=== PATIENT | female | born 1965 | race Caucasian/White ===

== ENCOUNTER 2016-06-26 09:04 | Emergency (ER) | payer SELFPAY ==
[~2016-06-26] VITALS: Ht 167.6 cm; Wt 81.8 kg
[~2016-06-26 09:04] MED LIST: AMOXICILLIN500 MG PO; AMPICILLIN500 MG PO; CLARITHROMYC500 M2 PO; EQ OMEPRAZOLE20 MG PO; MEDDOSEPAK PO; NAPROSYN500 MG PO; ULTRAM50 M1 PO; VENTOLIN HF1 IN
[2016-06-26 11:03] LABS: INFLUENZA A NONE DETECTED (NONE DETECT); INFLUENZA B NONE DETECTED (NONE DETECT)
[2016-06-26 13:31] LABS: HEMATOCRIT 38.1 % (37.0-47.0); HEMOGLOBIN 12.6 g/dl (12.0-16.0); IMMATURE GRANULOCYTES 0.4 % (0.0-1.0); MEAN CELL VOLUME 85.6 fL CALC (80.0-100.0); MEAN CORPUSCULAR HGB 28.3 pG CALC (26.0-32.0); MEAN CORPUSCULAR HGB CONC 33.1 g/L CALC (32.0-36.0); NEUT# 6.79 thou/uL (2.00-7.15); RED BLOOD COUNT 4.45 mill/uL (4.20-5.60); RED CELL DISTRI WIDTH 13.4 % (11.5-15.5)
[2016-06-26 13:41] LABS: ALBUMIN 3.9 g/dL (3.2-5.0); ALKALINE PHOSPHATASE 94 u/l (38-126); ANION GAP 14 (6-22 (CALC)); BILIRUBIN, TOTAL 0.6 mg/dL (0.0-1.4); BUN 17 mg/dL (7-17); BUN/CREATININE RATIO 31 (12-20 (CALC)); CARBON DIOXIDE 26 mmol/l (22-30); CHLORIDE 105 mmol/l (95-108); CREATININE 0.6 mg/dL (0.5-1.0); GFR > 60 ML/MIN (>=60 (CALC)); GFR FOR AFR.AMER. > 60 ML/MIN (>=60 (CALC)); GLUCOSE 97 mg/dL (65-105); LIPASE 41 u/l (23-300); POTASSIUM 3.8 mmol/l (3.5-5.1); SGOT/AST 35 u/l (14-36); SGPT/ALT 47 u/l (9-52); SODIUM 142 mmol/l (137-146); TOTAL PROTEIN 7.9 g/dL (6.3-8.2)
[2016-06-26 13:54] LABS: MYOGLOBIN 28 ng/mL (0 - 62)
[2016-06-26 15:09] LABS: URINE BILIRUBIN - DIPSTICK NEGATIVE (NEGATIVE); URINE BLOOD DIPSTICK LARGE (NEGATIVE); URINE COLOR YELLOW; URINE GLUCOSE - DIPSTICK NEGATIVE (NEGATIVE); URINE KETONE NEGATIVE (NEGATIVE); URINE LEUK ESTERASE TRACE (Negative); URINE NITRITE - DIPSTICK POSITIVE (Negative); URINE PROTEIN - DIPSTICK NEGATIVE (NEG-TRACE); URINE SPECIFIC GRAVITY 1.015; URINE UROBILINOGEN - DIPSTICK 0.2 E.U./dL (0.2)
[2016-06-26 15:11] LABS: URINE CLARITY CLOUDY
[2016-06-26 15:12] LABS: URINE BACTERIA MODERATE hpf; URINE EPITHELIAL CELLS FEW EPI/hpf (0-FEW); URINE RBC 25-50 RBC/hpf (0-5)
[2016-06-27] MEDS ORDERED: ZOFRAN4 MG/TAB PO (04:17)
[2016-06-27] MEDS ORDERED: CIPROFLOXACN500 MG PO (04:17)
[2016-06-27] MEDS ORDERED: IMODIUM2 MG PO (04:17)
[2016-06-27 04:30] VITALS: BP 119/82
== END 2016-06-27 04:30 | disposition home or self-care (01) | DRG 392 ==
LOC: ED 09:04
PROVIDERS: Emergency Medicine
DX: R11.10 Vomiting, unspecified (principal); R00.1 Bradycardia, unspecified; R19.7 Diarrhea, unspecified; R10.9 Unspecified abdominal pain
CPT/HCPCS: S0164

== ENCOUNTER 2016-08-20 19:35 | Inpatient (IN) | payer SELFPAY ==
[~2016-08-20] VITALS: Ht 167.6 cm; Wt 87.7 kg
[~2016-08-20 19:35] MED LIST changes: +CIPROFLOXACN500 MG PO; +IMODIUM2 MG PO; +ZOFRAN4 MG/TAB PO
[2016-08-20 20:57] LABS: HEMATOCRIT 40.1 % (37.0-47.0); HEMOGLOBIN 13.3 g/dl (12.0-16.0); IMMATURE GRANULOCYTES 0.5 % (0.0-1.0); MEAN CELL VOLUME 86.1 fL CALC (80.0-100.0); MEAN CORPUSCULAR HGB 28.5 pG CALC (26.0-32.0); MEAN CORPUSCULAR HGB CONC 33.2 g/L CALC (32.0-36.0); NEUT# 6.92 thou/uL (2.00-7.15); RED BLOOD COUNT 4.66 mill/uL (4.20-5.60); RED CELL DISTRI WIDTH 13.6 % (11.5-15.5)
[2016-08-20 21:15] LABS: ALBUMIN 3.9 g/dL (3.2-5.0); ALKALINE PHOSPHATASE 103 u/l (38-126); AMYLASE 122 u/l (30-110); ANION GAP 17 (6-22 (CALC)); BILIRUBIN, TOTAL 0.5 mg/dL (0.0-1.4); BUN 9 mg/dL (7-17); BUN/CREATININE RATIO 16 (12-20 (CALC)); CALCIUM 9.4 mg/dL (8.4-10.2); CARBON DIOXIDE 23 mmol/l (22-30); CHLORIDE 106 mmol/l (95-108); CREATININE 0.6 mg/dL (0.5-1.0); GFR > 60 ML/MIN (>=60 (CALC)); GFR FOR AFR.AMER. > 60 ML/MIN (>=60 (CALC)); GLUCOSE 92 mg/dL (65-105); LIPASE 1055 u/l (23-300); POTASSIUM 3.9 mmol/l (3.5-5.1); SGOT/AST 67 u/l (14-36); SGPT/ALT 43 u/l (9-52); SODIUM 142 mmol/l (137-146); TOTAL PROTEIN 7.5 g/dL (6.3-8.2)
[2016-08-20 21:29] LABS: URINE BILIRUBIN - DIPSTICK NEGATIVE (NEGATIVE); URINE BLOOD DIPSTICK MODERATE (NEGATIVE); URINE COLOR YELLOW; URINE GLUCOSE - DIPSTICK NEGATIVE (NEGATIVE); URINE KETONE NEGATIVE (NEGATIVE); URINE PROTEIN - DIPSTICK NEGATIVE (NEG-TRACE); URINE SPECIFIC GRAVITY 1.015; URINE UROBILINOGEN - DIPSTICK 0.2 E.U./dL (0.2)
[2016-08-20] MEDS ORDERED: NEURONTIN300 MG PO (21:31)
[2016-08-20 21:33] LABS: URINE CLARITY SLIGHT CLOUDY; URINE LEUK ESTERASE SMALL (NEGATIVE); URINE NITRITE - DIPSTICK POSITIVE (Negative)
[2016-08-20 21:39] LABS: URINE SQUAMOUS EPITHELIAL CELL FEW EPI/hpf (0-FEW)
[2016-08-20 21:40] LABS: URINE BACTERIA MANY hpf
[2016-08-21 00:05] VITALS: BP 124/87
[2016-08-21 04:30] VITALS: BP 114/65
[2016-08-21 08:16] VITALS: BP 107/75
[2016-08-21 15:43] VITALS: BP 122/79
[2016-08-21 19:15] VITALS: BP 115/76
[2016-08-22 03:35] VITALS: BP 108/77
[2016-08-22 06:09] LABS: ANION GAP 10 (6-22 (CALC)); BUN 5 mg/dL (7-17); BUN/CREATININE RATIO 11 (12-20 (CALC)); CALCIUM 8.8 mg/dL (8.4-10.2); CARBON DIOXIDE 25 mmol/l (22-30); CHLORIDE 107 mmol/l (95-108); CREATININE 0.5 mg/dL (0.5-1.0); GFR > 60 ML/MIN (>=60 (CALC)); GFR FOR AFR.AMER. > 60 ML/MIN (>=60 (CALC)); GLUCOSE 87 mg/dL (65-105); LIPASE 25 u/l (23-300); POTASSIUM 4.1 mmol/l (3.5-5.1); SODIUM 138 mmol/l (137-146)
[2016-08-22 06:11] LABS: HEMATOCRIT 34.8 % (37.0-47.0); HEMOGLOBIN 11.1 g/dl (12.0-16.0); IMMATURE GRANULOCYTES 0.3 % (0.0-1.0); MEAN CELL VOLUME 87.9 fL CALC (80.0-100.0); MEAN CORPUSCULAR HGB CONC 31.9 g/L CALC (32.0-36.0); NEUT# 4.02 thou/uL (2.00-7.15); RED BLOOD COUNT 3.96 mill/uL (4.20-5.60); RED CELL DISTRI WIDTH 13.6 % (11.5-15.5)
[2016-08-22 09:14] VITALS: BP 149/86
[2016-08-22] MEDS ORDERED: BACLOFEN10 MG PO (13:03)
[2016-08-22] MEDS ORDERED: KEFLEX500 MG PO (13:03)
[2016-08-22] MEDS ORDERED: CREON12000 UNT PO (13:03)
[2016-08-22] MEDS ORDERED: PROTONIX40 M2 PO (13:03)
[2016-08-22] MEDS ORDERED: SUCRALFATE1 GM/10 ML PO (13:03)
[2016-08-22] MEDS ORDERED: TRAMADOL HCL50 MG PO (13:03)
== END 2016-08-22 14:30 | disposition home or self-care (01) | DRG 439 ==
LOC: ENPENDDIS → ED 19:35 → ED-I 22:13 → ED 23:36 → MS2 23:37
PROVIDERS: Emergency Medicine; Internal Medicine; ADMIT Internal Medicine; ATTEND Internal Medicine
DX: K85.90 Acute pancreatitis without necrosis or infection, unspecified (principal); N39.0 Urinary tract infection, site not specified; G62.9 Polyneuropathy, unspecified; K27.9 Peptic ulcer, site unspecified, unspecified as acute or chronic, without hemorrhage or perforation; K86.1 Other chronic pancreatitis; K44.9 Diaphragmatic hernia without obstruction or gangrene; B96.1 Klebsiella pneumoniae [K. pneumoniae] as the cause of diseases classified elsewhere; K29.70 Gastritis, unspecified, without bleeding; R51 Headache; M19.90 Unspecified osteoarthritis, unspecified site; J45.909 Unspecified asthma, uncomplicated; F17.210 Nicotine dependence, cigarettes, uncomplicated; F12.90 Cannabis use, unspecified, uncomplicated
CPT/HCPCS: J1956; S0164

== ENCOUNTER 2016-12-13 09:12 | Emergency (ER) | payer SELFPAY ==
[~2016-12-13] VITALS: Ht 167.6 cm; Wt 79.5 kg
[~2016-12-13 09:12] MED LIST changes: +BACLOFEN10 MG PO; +CREON12000 UNT PO; +KEFLEX500 MG PO; +NEURONTIN300 MG PO; +PROTONIX40 M2 PO; +SUCRALFATE1 GM/10 ML PO; +TRAMADOL HCL50 MG PO
[2016-12-13] MEDS ORDERED: FLEXERIL PO (10:07)
[2016-12-13] MEDS ORDERED: EC-NAPROSYN500 MG PO ×2 (10:07→11:11)
[2016-12-13] MEDS ORDERED: TRAMADOL HYDROC50 MG PO (10:07)
[2016-12-13] MEDS ORDERED: LORTAB 5-325 MG1 TAB PO (11:11)
[2016-12-13 11:22] VITALS: BP 129/90
== END 2016-12-13 11:31 | disposition home or self-care (01) | DRG 313 ==
LOC: ED 09:12
DX: R07.89 Other chest pain (principal); S29.011A Strain of muscle and tendon of front wall of thorax, initial encounter; X50.1XXA Overexertion from prolonged static or awkward postures, initial encounter; Y92.009 Unspecified place in unspecified non-institutional (private) residence as the place of occurrence of the external cause

== ENCOUNTER 2017-02-23 12:07 | Inpatient (IN) | payer SELFPAY ==
[~2017-02-23] VITALS: Ht 165.1 cm; Wt 84.1 kg
[~2017-02-23 12:07] MED LIST changes: +EC-NAPROSYN500 MG PO; +FLEXERIL PO; +LORTAB 5-325 MG1 TAB PO; +TRAMADOL HYDROC50 MG PO
--- NOTE | 2017-02-23 12:19 | NUR ---
PT TO ROOM FOR EXAM
--- NOTE | 2017-02-23 12:30 | NUR ---
PATIENT TO ROOM VIA WHEELCHAIR, PATIENT VAGUE HISTORIAN. DAUGHTER REPORTS COUGH/COLD SYMPOTMS X 2 WEEKS WITH FEVER. PATIENT SAO2 92% ON ROOM AIR. AUDIBLE WHEEZES NOTED. LS DIMISINSHED BILATERALLY, RHONCI NOTED BILATERALLY UPON AUSCULTATION. PATIENT HAS PRODUCTIVE COUGH WITHNOTED GREEN SPUTUM. PATIENT AFEBRILE AT THIS TIME. HOB PLACED IN HIGH FOWLERS POSITION. MD AT BEDSIDE, RT AT BEDSIDE TO GIVE JOSE TX.
--- NOTE | 2017-02-23 13:00 | NUR ---
MONITORED PATIENT REPORTS 8/10 LEFT SIDED RIB PAIN. PATIENT PLACED ON 4 L OF O2 NC BY RT. HERNANDEZ AT BEDSIDE. SAO2 93% ON O2.
[2017-02-23 13:13] LABS: HEMATOCRIT 38.4 % (37.0-47.0); HEMOGLOBIN 12.3 g/dl (12.0-16.0); IMMATURE GRANULOCYTES 0.6 % (0.0-1.0); MEAN CELL VOLUME 88.3 fL CALC (80.0-100.0); MEAN CORPUSCULAR HGB 28.3 pG CALC (26.0-32.0); NEUT# 12.99 thou/uL (2.00-7.15); RED BLOOD COUNT 4.35 mill/uL (4.20-5.60); RED CELL DISTRI WIDTH 13.7 % (11.5-15.5)
[2017-02-23 13:21] LABS: ALKALINE PHOSPHATASE 78 u/l (38-126); ANION GAP 14 (6-22 (CALC)); BILIRUBIN, TOTAL 0.6 mg/dL (0.0-1.4); BUN 10 mg/dL (7-17); BUN/CREATININE RATIO 17 (12-20 (CALC)); CALCIUM 9.3 mg/dL (8.4-10.2); CARBON DIOXIDE 23 mmol/l (22-30); CHLORIDE 107 mmol/l (95-108); CREATININE 0.6 mg/dL (0.5-1.0); GFR > 60 ML/MIN (>=60 (CALC)); GFR FOR AFR.AMER. > 60 ML/MIN (>=60 (CALC)); GLUCOSE 94 mg/dL (65-105); SGOT/AST 34 u/l (14-36); SGPT/ALT 26 u/l (9-52); SODIUM 141 mmol/l (137-146); TOTAL PROTEIN 7.8 g/dL (6.3-8.2)
--- NOTE | 2017-02-23 13:25 | NUR ---
Admission Note Report Given to: MIRIAM Transported by: Wheelchair X Stretcher Transported with: X Nurse Transporter X Patent IV X O2 X Professional Poker Player MIRIAM TRANSPORTING PATIENT TO ICU, VERBAL REPORT GIVEN TO LPN. EMANUEL JIMENEZ AT BEDSIDE.
[2017-02-23 13:27] LABS: INFLUENZA A NONE DETECTED (NONE DETECT); INFLUENZA B NONE DETECTED (NONE DETECT)
--- NOTE | 2017-02-23 13:28 | NUR ---
PATIENT SAO2 96% ON ROOM AIR PATIENT REPORTS CONTINUED 8/10 LEFT SIDED RIB/BACK PAIN WORSENING UPON INSPIRATION. MD AWARE, AWAITING ORDERS.
[2017-02-23 13:33] LABS: MYOGLOBIN 37 ng/mL (0 - 62)
--- NOTE | 2017-02-23 14:00 | NUR ---
PATIENT REPORTS PAIN IS NOW 6/10. PATIENT RESTING COMFORTABLY IN STRETCHER WITH HOB ELEVATED. WILL CONTINUE TO MONITOR.
--- NOTE | 2017-02-23 14:13 | NUR ---
SBAR PRINTED TO FLOOR
--- NOTE | 2017-02-23 14:45 | NUR ---
PATIENT AWARE OF PENDING ADMISSION. PATIENT RESTING COMFORTABLY IN STRETCHER WITH HOB ELEVATED SAO2 100% ON 4 L NC AT THIS TIME. DRINK PROVIDED. WILL CONTINUE TO MONITOR.
--- NOTE | 2017-02-23 15:02 | NUR ---
PATIENT RESTING CMFORTABLY IN STRETCHER WITH HOB ELEVATED. PATIENT SAO2 100% ON 4 L NC. REPORT CALLED TO MIRIAM IN [place].
--- NOTE | 2017-02-23 15:25 | NUR ---
Admission Note Report Given to: ROSELIA PINEDA Transported by: Wheelchair X Stretcher Transported with: X Nurse Transporter X Patent IV X O2 X Nurse Practitioner Physicians Assistant ROSELIA PINEDA TRANSPORTING PATIENT TO ICU. REPORT GIVEN TO GUERDA JIMENEZ AND EMANUEL AT BEDSIDE.
--- NOTE | 2017-02-23 15:29 | NUR ---
PT.ARRIVED TO FLOOR VIA STRETCHER IN GOOD CONDITION ACCOMPANIED BY COMPA, ED NURSE. PT. C/O PAIN LEFT SIDE RIB CAGE UPON COUGHING 11/21, PT.IS ACTIVELY COUGHING. LUNG SOUNDS RONCHI/WHEEZING. DENIES N/V, LAST BM TODAY NORMAL, NEG ASSESSMENT OTHERWISE. PT.ORIENTED TO ROOM, CALL LIGHT AT SIDE AND PT.INSTRUCTED TO CALL FOR ASSISTANCE WHEN AMBULATING
[2017-02-23 15:46] LABS: URINE BILIRUBIN - DIPSTICK NEGATIVE (NEGATIVE); URINE BLOOD DIPSTICK MODERATE (NEGATIVE); URINE COLOR YELLOW; URINE GLUCOSE - DIPSTICK NEGATIVE (NEGATIVE); URINE KETONE NEGATIVE (NEGATIVE); URINE PROTEIN - DIPSTICK NEGATIVE (NEG-TRACE); URINE SPECIFIC GRAVITY 1.015; URINE UROBILINOGEN - DIPSTICK 0.2 E.U./dL (0.2)
[2017-02-23 15:48] LABS: URINE BACTERIA MANY hpf; URINE CLARITY CLOUDY; URINE EPITHELIAL CELLS MODERATE EPI/hpf (0-FEW); URINE LEUK ESTERASE SMALL (NEGATIVE); URINE NITRITE - DIPSTICK POSITIVE (Negative); URINE WBC 20-50 WBC/hpf (0-5)
[2017-02-23 16:06] VITALS: BP 123/84
[2017-02-23 19:30] VITALS: BP 107/73
--- NOTE | 2017-02-23 19:48 | NUR ---
PATIENT RESTING IN BED AT THIS TIME WITH O2 VIA NASAL CANNULA-C/O SEVERE LEFT RIB PAIN 8/10 ON PAIN SCALE. MEDICATED WITH MORPHINE 2MG IVP ORDERED FOR PAIN. HEP LOCK TO LEFT AC-SITE IS HEALTHY AT THIS TIME. PRODUCTIVE COUGH WITH GREEN SPUTUM. CALL LIGHT IN REACH. WILL CONT TO MONITOR.
[2017-02-23 23:47] VITALS: BP 144/91
--- NOTE | 2017-02-24 00:15 | NUR ---
PATIENT WITH SEVERE COUGH AND CONT TO C/O LEFT SIDE RIB PAIN AND HEADACHE-MEDICATED WITH MORPHINE 2MG IVP ORDERED FOR PAIN. PATIENT UP TO THE BR TO VOID CLEAR YELLOW URINE AND THEN BACK TO BED AND O2 VIA NASAL CANNULA IN PLACE. PATIENT WITH EXP WHEEZING EDEL. SAFETY PRECAUTIONS REINFORCED. CALL LIGHT IN REACH. WILL CONT TO MONITOR.
--- NOTE | 2017-02-24 00:35 | NUR ---
[facility] SWAB OBTAINED AND SENT TO LAB-PATIENT WITH HISTORY OF MRSA-PATIENT PLACED ON CONTACT PRECAUTIONS. PATIENT RESTING IN BED WITH O2 VIA NASAL CANNULA IN PLACE. CALL LIGHT IN REACH. WILL CONT TO MONITOR.
[2017-02-24 04:17] VITALS: BP 140/91
--- NOTE | 2017-02-24 04:40 | NUR ---
PATIENT CONT TO HAVE SEVERE PRODUCTIVE COUGH WITH WHEEZING THROUGHOUT AND LABORED BREATHING. CALL FOR RESP NEBS TREATMENT AND IT WAS GIVEN. O2 REMAINS IN PLACE AT 4LPM. PATIENT CONT TO C/O SEVERE PAIN TO LEFT RIBS AND ALSO HEADACHE FROM CONSTANT COUGHING-MEDICATED WITH MORPHINE 2MG IVP ORDERED.
[2017-02-24 06:03] LABS: HEMATOCRIT 37.6 % (37.0-47.0); HEMOGLOBIN 12.3 g/dl (12.0-16.0); IMMATURE GRANULOCYTES 0.9 % (0.0-1.0); MEAN CELL VOLUME 88.5 fL CALC (80.0-100.0); MEAN CORPUSCULAR HGB 28.9 pG CALC (26.0-32.0); MEAN CORPUSCULAR HGB CONC 32.7 g/L CALC (32.0-36.0); NEUT# 16.13 thou/uL (2.00-7.15); RED BLOOD COUNT 4.25 mill/uL (4.20-5.60); RED CELL DISTRI WIDTH 13.7 % (11.5-15.5)
[2017-02-24 06:16] LABS: ANION GAP 13 (6-22 (CALC)); BUN 7 mg/dL (7-17); BUN/CREATININE RATIO 17 (12-20 (CALC)); CALCIUM 9.4 mg/dL (8.4-10.2); CARBON DIOXIDE 23 mmol/l (22-30); CHLORIDE 109 mmol/l (95-108); CREATININE 0.4 mg/dL (0.5-1.0); GFR > 60 ML/MIN (>=60 (CALC)); GFR FOR AFR.AMER. > 60 ML/MIN (>=60 (CALC)); GLUCOSE 155 mg/dL (65-105); POTASSIUM 4.8 mmol/l (3.5-5.1); SODIUM 140 mmol/l (137-146)
--- NOTE | 2017-02-24 07:00 | NUR ---
SHIFT CHANGE FROM HAZEL HER AWAKE ALERT AND ORIENTED, COUGHING AT THIS TIME, C/O HEADACHE AND SIDE PAIN @ 11/21, TELE MONITOR IN PLACE, LEAVING UNIT FOR PROCEDURE AND RETURNED MOMENTARILY, PAIN CONCERNS ADDRESSED WITH MEDICATION AND COOL COMPRESS, WILL CONTINUE TO MONITOR, CALL MILLER IN REACH.
[2017-02-24 09:10] VITALS: BP 126/80
[2017-02-24 12:11] VITALS: BP 127/85
[2017-02-24 15:36] VITALS: BP 121/81
[2017-02-24 19:00] VITALS: BP 127/80
--- NOTE | 2017-02-24 20:00 | NUR ---
PATIENT RESTING IN BED WITH O2 VIA NASAL CANNULA IN PLACE. ALERT AND ORIENTEDX3. PATIENT CONT TO HAVE PRODUCTIVE COUGH AND REMAINS WITH SOME WHEEZING THROUGHOUT BUT SOME IMPROVMENT IS NOTED. VS TAKEN AND RECORDED. VOIDING QS IN BR YELLOW URINE. SAFETY PRECAUTIONS REINFORCED. CALL LIGHT IN REACH. WILL CONT TO MONITOR.
--- NOTE | 2017-02-24 21:15 | NUR ---
PATIENT MEDICATED WITH ROBITUSSIN DM FOR COUGH. ROCEPHIN INFUSING ORDERED VIA LLT SITE-SITE APPEARS HEALTHY AT THIS TIME. CALL LIGHT IN REACH. WILL CONT TO MONITOR.
--- NOTE | 2017-02-25 00:21 | NUR ---
PATIENT SITTING UP IN BED HAVING SEVERE COUGHING EPISODE. MEDICATED WITH SOLUMEDROL ORDERED WITH LORTAB FOR PAIN TO LEFT RIBS. DAUGHTER AT BEDSIDE. CALL LIGHT IN REACH. WILL CONT TO MONITOR.
[2017-02-25 00:32] VITALS: BP 132/85
--- NOTE | 2017-02-25 04:31 | NUR ---
PATIENT SITTING UP IN THE BED AT THIS TIME WITH SEVERE COUGH AND WHEEZING. PATIENT MEDICATED WITH ROBITUSSIN DM FOR COUGH AND WITH LORTAB FOR LEFT SIDE RIB OAIN. CALL FOR RESP TREATMENT. CALL LIGHT IN REACH. WILL CONT TO MONITOR.
[2017-02-25 05:33] VITALS: BP 111/74
[2017-02-25 06:09] LABS: HEMATOCRIT 36.8 % (37.0-47.0); HEMOGLOBIN 11.9 g/dl (12.0-16.0); IMMATURE GRANULOCYTES 1.3 % (0.0-1.0); MEAN CELL VOLUME 88.5 fL CALC (80.0-100.0); MEAN CORPUSCULAR HGB 28.6 pG CALC (26.0-32.0); MEAN CORPUSCULAR HGB CONC 32.3 g/L CALC (32.0-36.0); NEUT# 18.02 thou/uL (2.00-7.15); RED BLOOD COUNT 4.16 mill/uL (4.20-5.60); RED CELL DISTRI WIDTH 13.9 % (11.5-15.5)
[2017-02-25 06:29] LABS: ANION GAP 15 (6-22 (CALC)); BUN 13 mg/dL (7-17); BUN/CREATININE RATIO 25 (12-20 (CALC)); CALCIUM 9.7 mg/dL (8.4-10.2); CARBON DIOXIDE 23 mmol/l (22-30); CHLORIDE 107 mmol/l (95-108); CREATININE 0.5 mg/dL (0.5-1.0); GFR > 60 ML/MIN (>=60 (CALC)); GFR FOR AFR.AMER. > 60 ML/MIN (>=60 (CALC)); GLUCOSE 157 mg/dL (65-105); MAGNESIUM 2.1 mg/dL (1.6-2.3); POTASSIUM 4.6 mmol/l (3.5-5.1); SODIUM 140 mmol/l (137-146)
[2017-02-25 07:45] VITALS: BP 150/99
--- NOTE | 2017-02-25 07:45 | NUR ---
ASSESSMENT IS COMPLTED: PT IS COUGHING WITH A TIGHT COUGH, C/O SIDE HURTING. IV SITE IS FREE FROM REDNESS OR EDEMA. TELE MONITOR IN PLACE. BREATH SOUNDS ARE WHEEZING THROUGHOUT. CONTIUE TO OBSERVE AND MONITOR.
[2017-02-25 11:00] VITALS: BP 126/81
--- NOTE | 2017-02-25 11:18 | NUR ---
SPOKE TO PT REGARDING HER PAST REACTION TO CODIENE. PT REPORTED EXPERIENCING MILD ITCHING AROUND HER NOSE AND ARMS (NO SWELLING/RASH). PT IS WILLING TO TAKE CODIENE FOR HER COUGH REGARDLESS OF THE SIDE-EFFECT. PT'S REACTION WAS UPDATED ON PROFILE.
--- NOTE | 2017-02-25 12:15 | NUR ---
PT IS VISITING WITH FAMILY NO DISTRESS NOTED. IV SITE IS FREE FROM REDNESS OR EDEMA.CONTINUE TO OBSERVE AND MONITOR.
[2017-02-25 15:29] VITALS: BP 111/69
--- NOTE | 2017-02-25 16:15 | NUR ---
PT IS VISITING WITH FAMILY, NO DISTRESS NOTED. IV SITE IS FREE FROM REDNESS OR EDEMA. CONTINUE TO OSBERVE AND MONITOR.
[2017-02-25 19:31] VITALS: BP 124/86
--- NOTE | 2017-02-25 19:47 | NUR ---
SPOKE WITH KYLE SMITH RE: K PAD AND CPT FOR PT. ORDER WAS INITIATED. INFORMED ONCOMING SHIFT.
--- NOTE | 2017-02-25 20:00 | NUR ---
PATIENT SITTING UP IN BED AT THIS TIME ALERT AND ORIENTED WITH O2 VIA NASAL CANNULA IN PLACE. CONT WITH PRODUCTIVE COUGH, USING K-PAD TO LEFT SIDE/RIBS. HEP LOCK TO LEFT FOREARM. SITE APPEARS HEALTHY AT THIS TIME. DAUGHTER AT BEDSIDE. CALL LIGHT IN REACH. WILL CONT TO MONITOR.
--- NOTE | 2017-02-25 21:38 | NUR ---
PATIENT DESIRED TO START CPT TOMORROW. HAD A ROUGHT DAY TODAY.
[2017-02-26] VITALS (7 sets, daily range): BP systolic 112–162; BP diastolic 62–103
--- NOTE | 2017-02-26 00:08 | NUR ---
PATIENT SITTING UP IN BED WITH O2 VIA NASAL CANNULA IN PLACE. USING K-PAD TO LEFT SIDE. CONT TO HAVE PAIN TO THAT LEFT SIDE/RIBS. HEP LOCK TO LEFT FOREARM INTACT AND APPEARS HEALTHY AT THIS TIME. SAFETY PRECAUTIONS REINFORCED. CALL LIGHT N REACH. WILL CONT TO MONITOR.
--- NOTE | 2017-02-26 01:26 | NUR ---
PATIENT AWAKE AND C/O SEVERE HEADACHE AND LEFT SIDE CHEST PAIN. MEDICATED WITH PERCOCET FOR PAIN AND WITH ROBITUSSIN AC FOR COUGH. LINEN AND GOWN CHANGED. DAUGHTER AT BEDSIDE. CALLLIGHT IN REACH. WILL CONT TO MONITOR.
--- NOTE | 2017-02-26 06:08 | NUR ---
PATIENT APPEARS SLEEPING AT THIS TIME WITH DAUGHTER AT BEDSIDE IN RECLINER. PATIENT WITH O2 VIA NASAL CANNULA IN PLACE. CALL LIGHT IN REACH. WILL CONT TO MONITOR.
--- NOTE | 2017-02-26 08:05 | NUR ---
ASSESSMENT IS COMPLETED: PT IS WHEEZING AND COUGHING IV SITE IS FREE FROM REDNESS OR EDEMA. NO DISTRESS NOTED. CONTINUE TO OBSERVE AND MONITOR.
--- NOTE | 2017-02-26 10:03 | NUR ---
NEB TX FOLLOWED BY CPT VIA PERCUSSOR TO LLL. PT TOLERATED WELL.
--- NOTE | 2017-02-26 12:15 | NUR ---
PT IS VISITING WITH FAMILY STILL C/O COUGH. IV SITE IS FREE FROM REDNESS OR EDEMA. CONTINUE TO OBSERVE AND MONITOR.
--- NOTE | 2017-02-26 13:37 | NUR ---
NEB TX FOLLOWED BY CPT VIA PERCUSSOR TO LLL.
--- NOTE | 2017-02-26 17:22 | NUR ---
NEB TX FOLLOWED BY CPT VIA PERCUSSOR.
--- NOTE | 2017-02-26 19:45 | NUR ---
PT SITTING UP IN BED. VISITOR IN ROOM. PT IS ALERT AND ORIENTEDX3. PERRLA. LUNGS ARE CLEAR. RESP ARE EVEN AND UNLABORED. TELE IN PLACE. HR REGULAR. PULSES PALPABLE THROUGHOUT. NO EDEMA NOTED. BS ACTIVE. PT WITH COMPLAINTS OF A HEADACHE. WILL MEDICATE. #22 LFA. SALINE LOCKED. NO REDNESS OR EDEMA NOTED. WILL CONTINUE TO MONITOR
--- NOTE | 2017-02-27 00:30 | NUR ---
PT SITTING UP IN BED TALKING TO VISITOR THAT IS STAYING IN ROOM. RESP ARE EVEN AND UNLABORED. NO CHANGE IN PT STATUS WILL CONINUE TO MONITOR
--- NOTE | 2017-02-27 04:11 | NUR ---
PT RESTING IN BED BED. PT STATES THAT HER HEADAHCE HAS IMPOROVED SINCE RECEIVEING THE PERCOCET. NO CHANGE IN T STATUS. WILL CONTINUE TO MONITOR
[2017-02-27 05:20] VITALS: BP 134/87
--- NOTE | 2017-02-27 05:40 | NUR ---
CPT DONE TO POSTERIOR LLL. NON-PRODUCTIVE COUGH. TOLERATED WELL.
[2017-02-27 05:49] LABS: HEMATOCRIT 35.7 % (37.0-47.0); HEMOGLOBIN 11.6 g/dl (12.0-16.0); IMMATURE GRANULOCYTES 2.1 % (0.0-1.0); MEAN CELL VOLUME 88.4 fL CALC (80.0-100.0); MEAN CORPUSCULAR HGB 28.7 pG CALC (26.0-32.0); MEAN CORPUSCULAR HGB CONC 32.5 g/L CALC (32.0-36.0); NEUT# 15.21 thou/uL (2.00-7.15); RED BLOOD COUNT 4.04 mill/uL (4.20-5.60); RED CELL DISTRI WIDTH 13.9 % (11.5-15.5)
[2017-02-27 06:11] LABS: ANION GAP 15 (6-22 (CALC)); BUN 14 mg/dL (7-17); BUN/CREATININE RATIO 28 (12-20 (CALC)); CALCIUM 9.4 mg/dL (8.4-10.2); CARBON DIOXIDE 26 mmol/l (22-30); CHLORIDE 105 mmol/l (95-108); CREATININE 0.5 mg/dL (0.5-1.0); GFR > 60 ML/MIN (>=60 (CALC)); GFR FOR AFR.AMER. > 60 ML/MIN (>=60 (CALC)); GLUCOSE 127 mg/dL (65-105); MAGNESIUM 2.2 mg/dL (1.6-2.3); POTASSIUM 4.7 mmol/l (3.5-5.1); SODIUM 140 mmol/l (137-146)
--- NOTE | 2017-02-27 09:05 | NUR ---
PT.MEDICATED FOR PAIN 10/21.
[2017-02-27 09:11] VITALS: BP 126/89
--- NOTE | 2017-02-27 11:00 | NUR ---
PT.MEDICATED W/ROBITUSSIN FOR COUGH
[2017-02-27 11:15] VITALS: BP 129/84
--- NOTE | 2017-02-27 13:26 | NUR ---
PT.ANTIBIOTIC THERAPY ADMINISTERED AT THIS TIME, PT.REQUESTED PAIN MEDICATION/WILL FOLLOW-UP TO PROVIDE
[2017-02-27] MEDS ORDERED: LEVAQUIN750 MG PO (13:41)
[2017-02-27] MEDS ORDERED: PERCOCET 5/325M1 TAB PO (13:44)
[2017-02-27] MEDS ORDERED: ROBITUSSIN AC10 ML PO (13:44)
[2017-02-27] MEDS ORDERED: PREDNISONE10 MG PO (13:44)
[2017-02-27] MEDS ORDERED: GNP NICOTI21 MG/24 H TD (13:44)
[2017-02-27] MEDS ORDERED: DUONEB IN (13:45)
--- NOTE | 2017-02-27 15:53 | NUR ---
PT.DISCHARGED OFF THE UNIT, SELF AMBULATORY IN GOOD CONDITION, ACCOMPANIED BY DAUGHTER. IV REMOVED INTACT, SITE APPEARS HEALTHY, COMPOUNDER FLAVORINGS HAS BEEN REMOVED AND RETURNED TO ED.
== END 2017-02-27 15:47 | disposition home or self-care (01) | DRG 190 ==
LOC: ED 12:07 → ED-I 13:57 → ED 14:12 → MS2 14:13
PROVIDERS: Family Medicine; Nurse Practitioner Family; ADMIT Internal Medicine; ATTEND Internal Medicine
DX: J44.0 Chronic obstructive pulmonary disease with (acute) lower respiratory infection (principal); J18.9 Pneumonia, unspecified organism; K86.1 Other chronic pancreatitis; N39.0 Urinary tract infection, site not specified; J20.9 Acute bronchitis, unspecified; J44.1 Chronic obstructive pulmonary disease with (acute) exacerbation; F17.210 Nicotine dependence, cigarettes, uncomplicated; G57.93 Unspecified mononeuropathy of bilateral lower limbs; G89.29 Other chronic pain; M54.5 Low back pain; R09.02 Hypoxemia; F12.90 Cannabis use, unspecified, uncomplicated; B96.1 Klebsiella pneumoniae [K. pneumoniae] as the cause of diseases classified elsewhere

== ENCOUNTER 2017-03-04 08:39 | Emergency (ER) | payer SELFPAY ==
[~2017-03-04] VITALS: Ht 165.1 cm; Wt 84.0 kg
[~2017-03-04 08:39] MED LIST changes: +DUONEB IN; +GNP NICOTI21 MG/24 H TD; +LEVAQUIN750 MG PO; +PERCOCET 5/325M1 TAB PO; +PREDNISONE10 MG PO; +ROBITUSSIN AC10 ML PO
[2017-03-04 09:22] LABS: HEMATOCRIT 37.9 % (37.0-47.0); HEMOGLOBIN 12.5 g/dl (12.0-16.0); IMMATURE GRANULOCYTES 4.4 % (0.0-1.0); MEAN CELL VOLUME 87.7 fL CALC (80.0-100.0); MEAN CORPUSCULAR HGB 28.9 pG CALC (26.0-32.0); NEUT# 16.06 thou/uL (2.00-7.15); RED BLOOD COUNT 4.32 mill/uL (4.20-5.60); RED CELL DISTRI WIDTH 14.1 % (11.5-15.5)
[2017-03-04 09:38] LABS: ALBUMIN 3.4 g/dL (3.2-5.0); ALKALINE PHOSPHATASE 66 u/l (38-126); AMYLASE 72 u/l (30-110); ANION GAP 12 (6-22 (CALC)); BILIRUBIN, TOTAL 0.4 mg/dL (0.0-1.4); BUN 15 mg/dL (7-17); BUN/CREATININE RATIO 27 (12-20 (CALC)); CALCIUM 8.3 mg/dL (8.4-10.2); CARBON DIOXIDE 27 mmol/l (22-30); CHLORIDE 106 mmol/l (95-108); CREATININE 0.5 mg/dL (0.5-1.0); GFR > 60 ML/MIN (>=60 (CALC)); GFR FOR AFR.AMER. > 60 ML/MIN (>=60 (CALC)); GLUCOSE 82 mg/dL (65-105); LIPASE 57 u/l (23-300); POTASSIUM 3.9 mmol/l (3.5-5.1); SGOT/AST 26 u/l (14-36); SGPT/ALT 52 u/l (9-52); SODIUM 141 mmol/l (137-146); TOTAL PROTEIN 6.3 g/dL (6.3-8.2)
[2017-03-04 09:51] LABS: MYOGLOBIN 21 ng/mL (0 - 62)
[2017-03-04 12:56] LABS: URINE BILIRUBIN - DIPSTICK NEGATIVE (NEGATIVE); URINE BLOOD DIPSTICK NEGATIVE (NEGATIVE); URINE CLARITY CLEAR; URINE COLOR YELLOW; URINE GLUCOSE - DIPSTICK NEGATIVE (NEGATIVE); URINE KETONE NEGATIVE (NEGATIVE); URINE LEUK ESTERASE NEGATIVE (NEGATIVE); URINE NITRITE - DIPSTICK NEGATIVE (Negative); URINE PROTEIN - DIPSTICK NEGATIVE (NEG-TRACE); URINE SPECIFIC GRAVITY <=1.005; URINE UROBILINOGEN - DIPSTICK 0.2 E.U./dL (0.2)
[2017-03-04 13:06] LABS: BARBITURATES NEGATIVE (NEGATIVE); COCAINE NEGATIVE (NEGATIVE); METHADONE NEGATIVE (NEGATIVE); OXCYCODONE NEGATIVE (NEGATIVE); TETRAHYDROCANNABIONOL POSITIVE (NEGATIVE); TRICYLIC ANTIDEPRESSANTS NEGATIVE (NEGATIVE)
[2017-03-04] MEDS ORDERED: ULTRAM50 M1 PO (14:08)
[2017-03-04] MEDS ORDERED: PREVACID30 M1 PO (14:08)
[2017-03-04 14:41] VITALS: BP 182/117
== END 2017-03-04 14:42 | disposition home or self-care (01) | DRG 313 ==
LOC: ED 08:39 → ED-I 09:24 → ED 09:24 → ED-I 12:50 → ED 14:42
PROVIDERS: Emergency Medicine
DX: R07.89 Other chest pain (principal); F17.210 Nicotine dependence, cigarettes, uncomplicated
CPT/HCPCS: S0164

== ENCOUNTER 2017-03-13 09:47 | Emergency (ER) | payer SELFPAY ==
[~2017-03-13] VITALS: Ht 165.1 cm; Wt 100.0 kg
[~2017-03-13 09:47] MED LIST changes: +PREVACID30 M1 PO
[2017-03-13] MEDS ORDERED: GABAPENTIN100 MG PO (10:14)
[2017-03-13 10:19] LABS: HEMATOCRIT 36.3 % (37.0-47.0); HEMOGLOBIN 12.3 g/dl (12.0-16.0); MEAN CELL VOLUME 88.3 fL CALC (80.0-100.0); MEAN CORPUSCULAR HGB 29.9 pG CALC (26.0-32.0); MEAN CORPUSCULAR HGB CONC 33.9 g/L CALC (32.0-36.0); NEUT# 12.18 thou/uL (2.00-7.15); RED BLOOD COUNT 4.11 mill/uL (4.20-5.60); RED CELL DISTRI WIDTH 14.9 % (11.5-15.5)
[2017-03-13 10:44] LABS: ALBUMIN 3.5 g/dL (3.2-5.0); ALKALINE PHOSPHATASE 65 u/l (38-126); ANION GAP 14 (6-22 (CALC)); BILIRUBIN, TOTAL 0.3 mg/dL (0.0-1.4); BUN 18 mg/dL (7-17); BUN/CREATININE RATIO 31 (12-20 (CALC)); CALCIUM 8.8 mg/dL (8.4-10.2); CARBON DIOXIDE 22 mmol/l (22-30); CHLORIDE 105 mmol/l (95-108); CREATININE 0.6 mg/dL (0.5-1.0); GFR > 60 ML/MIN (>=60 (CALC)); GFR FOR AFR.AMER. > 60 ML/MIN (>=60 (CALC)); GLUCOSE 115 mg/dL (65-105); POTASSIUM 3.8 mmol/l (3.5-5.1); SGOT/AST 21 u/l (14-36); SGPT/ALT 38 u/l (9-52); SODIUM 137 mmol/l (137-146); TOTAL PROTEIN 6.3 g/dL (6.3-8.2)
[2017-03-13 10:57] LABS: MYOGLOBIN 24 ng/mL (0 - 62)
[2017-03-13 11:33] LABS: COCAINE NEGATIVE (NEGATIVE); METHADONE NEGATIVE (NEGATIVE); TETRAHYDROCANNABIONOL NEGATIVE (NEGATIVE)
[2017-03-13 11:34] LABS: BARBITURATES NEGATIVE (NEGATIVE); OXCYCODONE POSITIVE (NEGATIVE); TRICYLIC ANTIDEPRESSANTS POSITIVE (NEGATIVE)
[2017-03-13 14:49] LABS: MYOGLOBIN 19 ng/mL (0 - 62)
[2017-03-13] MEDS ORDERED: ASPIRIN 81 LOW81 MG PO (14:58)
[2017-03-13 15:00] VITALS: BP 143/80
== END 2017-03-13 15:10 | disposition home or self-care (01) | DRG 313 ==
LOC: ED 09:47 → ED-I 11:37 → ED 15:10
PROVIDERS: Emergency Medicine
DX: R07.9 Chest pain, unspecified (principal); I10 Essential (primary) hypertension; M54.2 Cervicalgia; R06.02 Shortness of breath

== ENCOUNTER 2017-04-26 22:19 | Observation (INO) | payer SELFPAY ==
[~2017-04-26] VITALS: Ht 165.1 cm; Wt 85.2 kg
[~2017-04-26 22:19] MED LIST changes: +ASPIRIN 81 LOW81 MG PO; +GABAPENTIN100 MG PO
[2017-04-27 00:23] LABS: HEMATOCRIT 40.2 % (37.0-47.0); HEMOGLOBIN 13.3 g/dl (12.0-16.0); IMMATURE GRANULOCYTES 0.6 % (0.0-1.0); MEAN CORPUSCULAR HGB 28.8 pG CALC (26.0-32.0); MEAN CORPUSCULAR HGB CONC 33.1 g/L CALC (32.0-36.0); NEUT# 11.29 thou/uL (2.00-7.15); RED BLOOD COUNT 4.62 mill/uL (4.20-5.60); RED CELL DISTRI WIDTH 13.7 % (11.5-15.5)
[2017-04-27 00:37] LABS: ALBUMIN 4.3 g/dL (3.2-5.0); ALKALINE PHOSPHATASE 82 u/l (38-126); AMYLASE 45 u/l (30-110); ANION GAP 17 (6-22 (CALC)); BILIRUBIN, TOTAL 0.4 mg/dL (0.0-1.4); BUN 18 mg/dL (7-17); BUN/CREATININE RATIO 29 (12-20 (CALC)); CALCIUM 9.7 mg/dL (8.4-10.2); CARBON DIOXIDE 24 mmol/l (22-30); CHLORIDE 108 mmol/l (95-108); CREATININE 0.6 mg/dL (0.5-1.0); GFR > 60 ML/MIN (>=60 (CALC)); GFR FOR AFR.AMER. > 60 ML/MIN (>=60 (CALC)); GLUCOSE 105 mg/dL (65-105); LIPASE 66 u/l (23-300); POTASSIUM 4.7 mmol/l (3.5-5.1); SGOT/AST 30 u/l (14-36); SGPT/ALT 24 u/l (9-52); SODIUM 144 mmol/l (137-146); TOTAL PROTEIN 7.3 g/dL (6.3-8.2)
[2017-04-27 00:47] LABS: MYOGLOBIN 20 ng/mL (0 - 62)
[2017-04-27 03:10] LABS: URINE BILIRUBIN - DIPSTICK NEGATIVE (NEGATIVE); URINE BLOOD DIPSTICK LARGE (NEGATIVE); URINE COLOR YELLOW; URINE GLUCOSE - DIPSTICK NEGATIVE (NEGATIVE); URINE KETONE NEGATIVE (NEGATIVE); URINE LEUK ESTERASE TRACE (NEGATIVE); URINE NITRITE - DIPSTICK NEGATIVE (Negative); URINE PROTEIN - DIPSTICK NEGATIVE (NEG-TRACE); URINE UROBILINOGEN - DIPSTICK 0.2 E.U./dL (0.2)
[2017-04-27 03:17] LABS: URINE CLARITY CLEAR
[2017-04-27 03:22] LABS: URINE BACTERIA RARE hpf; URINE SQUAMOUS EPITHELIAL CELL RARE EPI/hpf (0-FEW)
[2017-04-27 04:16] VITALS: BP 120/82
[2017-04-27 07:32] VITALS: BP 108/66
[2017-04-27 08:14] LABS: HEMATOCRIT 33.9 % (37.0-47.0); IMMATURE GRANULOCYTES 0.4 % (0.0-1.0); MEAN CELL VOLUME 89.2 fL CALC (80.0-100.0); MEAN CORPUSCULAR HGB 28.9 pG CALC (26.0-32.0); MEAN CORPUSCULAR HGB CONC 32.4 g/L CALC (32.0-36.0); NEUT# 6.04 thou/uL (2.00-7.15); RED BLOOD COUNT 3.8 mill/uL (4.20-5.60); RED CELL DISTRI WIDTH 13.8 % (11.5-15.5)
[2017-04-27 08:26] LABS: ANION GAP 12 (6-22 (CALC)); BUN 20 mg/dL (7-17); BUN/CREATININE RATIO 31 (12-20 (CALC)); CALCIUM 8.8 mg/dL (8.4-10.2); CARBON DIOXIDE 24 mmol/l (22-30); CHLORIDE 108 mmol/l (95-108); CREATININE 0.7 mg/dL (0.5-1.0); GFR > 60 ML/MIN (>=60 (CALC)); GFR FOR AFR.AMER. > 60 ML/MIN (>=60 (CALC)); GLUCOSE 109 mg/dL (65-105); POTASSIUM 3.6 mmol/l (3.5-5.1); SODIUM 141 mmol/l (137-146)
[2017-04-27] MEDS ORDERED: PROTONIX40 MG PO (10:25)
[2017-04-27] MEDS ORDERED: ZOFRAN ODT4 MG PO (10:25)
== END 2017-04-27 12:18 | disposition home or self-care (01) | DRG 440 ==
LOC: ED 22:19 → ED-I 04-27 03:15 → ED 04-27 03:34 → MS2 04-27 03:35
PROVIDERS: Emergency Medicine; ADMIT Internal Medicine; ATTEND Internal Medicine
DX: K86.1 Other chronic pancreatitis (principal); G62.9 Polyneuropathy, unspecified; M25.512 Pain in left shoulder; J44.9 Chronic obstructive pulmonary disease, unspecified; F17.210 Nicotine dependence, cigarettes, uncomplicated; Z87.11 Personal history of peptic ulcer disease; Z79.82 Long term (current) use of aspirin; Z86.14 Personal history of Methicillin resistant Staphylococcus aureus infection
CPT/HCPCS: G0378; Q9967; S0164

== ENCOUNTER 2017-06-22 11:25 | Emergency (ER) | payer SELFPAY ==
[~2017-06-22] VITALS: Ht 165.1 cm; Wt 81.0 kg
[~2017-06-22 11:25] MED LIST changes: +PROTONIX40 MG PO; +ZOFRAN ODT4 MG PO
[2017-06-22 12:02] LABS: HEMATOCRIT 38.3 % (37.0-47.0); HEMOGLOBIN 12.6 g/dl (12.0-16.0); IMMATURE GRANULOCYTES 0.5 % (0.0-1.0); MEAN CELL VOLUME 87.8 fL CALC (80.0-100.0); MEAN CORPUSCULAR HGB 28.9 pG CALC (26.0-32.0); MEAN CORPUSCULAR HGB CONC 32.9 g/L CALC (32.0-36.0); NEUT# 5.88 thou/uL (2.00-7.15); RED BLOOD COUNT 4.36 mill/uL (4.20-5.60); RED CELL DISTRI WIDTH 13.1 % (11.5-15.5)
[2017-06-22 12:03] LABS: URINE BILIRUBIN - DIPSTICK NEGATIVE (NEGATIVE); URINE BLOOD DIPSTICK SMALL (NEGATIVE); URINE COLOR YELLOW; URINE GLUCOSE - DIPSTICK NEGATIVE (NEGATIVE); URINE KETONE NEGATIVE (NEGATIVE); URINE PH 6.5 (4.5-8.0); URINE PROTEIN - DIPSTICK NEGATIVE (NEG-TRACE); URINE SPECIFIC GRAVITY <=1.005; URINE UROBILINOGEN - DIPSTICK 0.2 E.U./dL (0.2)
[2017-06-22 12:11] LABS: URINE BACTERIA MANY hpf; URINE CLARITY CLOUDY; URINE LEUK ESTERASE LARGE (NEGATIVE); URINE NITRITE - DIPSTICK POSITIVE (Negative); URINE SQUAMOUS EPITHELIAL CELL FEW EPI/hpf (0-FEW); URINE WBC TNTC WBC/hpf (0-5)
[2017-06-22] MEDS ORDERED: PYRIDIUM200 MG PO (13:12)
[2017-06-22] MEDS ORDERED: BACTRIM DS1 TAB PO (13:12)
[2017-06-22] MEDS ORDERED: TORADOL PO (13:12)
[2017-06-22 13:30] VITALS: BP 127/80
== END 2017-06-22 13:30 | disposition home or self-care (01) | DRG 690 ==
LOC: ED 11:25
PROVIDERS: Emergency Medicine
DX: N39.0 Urinary tract infection, site not specified (principal); B96.20 Unspecified Escherichia coli [E. coli] as the cause of diseases classified elsewhere; M54.5 Low back pain; R30.0 Dysuria; R10.9 Unspecified abdominal pain; N81.6 Rectocele

== ENCOUNTER 2017-07-14 12:59 | Emergency (ER) | payer SELFPAY ==
[~2017-07-14] VITALS: Ht 165.1 cm; Wt 82.0 kg
[~2017-07-14 12:59] MED LIST changes: +BACTRIM DS1 TAB PO; +PYRIDIUM200 MG PO; +TORADOL PO
[2017-07-14 13:58] LABS: HEMATOCRIT 41.5 % (37.0-47.0); HEMOGLOBIN 13.7 g/dl (12.0-16.0); IMMATURE GRANULOCYTES 0.3 % (0.0-1.0); MEAN CELL VOLUME 87.2 fL CALC (80.0-100.0); MEAN CORPUSCULAR HGB 28.8 pG CALC (26.0-32.0); NEUT# 7.26 thou/uL (2.00-7.15); RED BLOOD COUNT 4.76 mill/uL (4.20-5.60)
[2017-07-14 14:01] LABS: BARBITURATES NEGATIVE (NEGATIVE); COCAINE POSITIVE (NEGATIVE); METHADONE NEGATIVE (NEGATIVE); OXCYCODONE POSITIVE (NEGATIVE); TETRAHYDROCANNABIONOL NEGATIVE (NEGATIVE); TRICYLIC ANTIDEPRESSANTS NEGATIVE (NEGATIVE)
[2017-07-14 14:28] LABS: ALKALINE PHOSPHATASE 93 u/l (38-126); ANION GAP 17 (6-22 (CALC)); BILIRUBIN, TOTAL 0.5 mg/dL (0.0-1.4); BUN 11 mg/dL (7-17); BUN/CREATININE RATIO 19 (12-20 (CALC)); CARBON DIOXIDE 20 mmol/l (22-30); CHLORIDE 111 mmol/l (95-108); CREATININE 0.6 mg/dL (0.5-1.0); GFR > 60 ML/MIN (>=60 (CALC)); GFR FOR AFR.AMER. > 60 ML/MIN (>=60 (CALC)); POTASSIUM 3.7 mmol/l (3.5-5.1); SGOT/AST 23 u/l (14-36); SGPT/ALT 39 u/l (9-52); SODIUM 144 mmol/l (137-146); TOTAL PROTEIN 7.4 g/dL (6.3-8.2)
[2017-07-14 14:59] LABS: TSH, 3RD GENERATION 0.69 uIU/mL (0.47 - 4.68)
[2017-07-14 15:08] VITALS: BP 113/86
== END 2017-07-14 15:21 | disposition home or self-care (01) | DRG 880 ==
LOC: ED 12:59
PROVIDERS: Emergency Medicine
DX: F41.9 Anxiety disorder, unspecified (principal); F17.210 Nicotine dependence, cigarettes, uncomplicated; F11.90 Opioid use, unspecified, uncomplicated; F14.90 Cocaine use, unspecified, uncomplicated
CPT/HCPCS: J2060

== ENCOUNTER 2017-07-19 09:03 | Emergency (ER) | payer SELFPAY ==
[~2017-07-19] VITALS: Ht 165.1 cm; Wt 81.8 kg
[2017-07-19] MEDS ORDERED: PERCOCET 10/31 COMBO PO (09:16)
[2017-07-19 09:46] LABS: URINE BILIRUBIN - DIPSTICK NEGATIVE (NEGATIVE); URINE BLOOD DIPSTICK MODERATE (NEGATIVE); URINE COLOR YELLOW; URINE GLUCOSE - DIPSTICK NEGATIVE (NEGATIVE); URINE KETONE TRACE mg/dL (NEGATIVE); URINE NITRITE - DIPSTICK NEGATIVE (Negative); URINE PH 6.5 (4.5-8.0); URINE PROTEIN - DIPSTICK NEGATIVE (NEG-TRACE); URINE SPECIFIC GRAVITY 1.015; URINE UROBILINOGEN - DIPSTICK 0.2 E.U./dL (0.2)
[2017-07-19 09:47] LABS: HEMATOCRIT 40.8 % (37.0-47.0); HEMOGLOBIN 13.7 g/dl (12.0-16.0); IMMATURE GRANULOCYTES 0.3 % (0.0-1.0); MEAN CELL VOLUME 85.5 fL CALC (80.0-100.0); MEAN CORPUSCULAR HGB 28.7 pG CALC (26.0-32.0); MEAN CORPUSCULAR HGB CONC 33.6 g/L CALC (32.0-36.0); NEUT# 6.71 thou/uL (2.00-7.15); RED BLOOD COUNT 4.77 mill/uL (4.20-5.60); RED CELL DISTRI WIDTH 12.8 % (11.5-15.5); URINE BACTERIA MODERATE hpf; URINE CLARITY HAZY; URINE EPITHELIAL CELLS MODERATE EPI/hpf (0-FEW); URINE LEUK ESTERASE LARGE (NEGATIVE)
[2017-07-19 09:59] LABS: ALBUMIN 4.2 g/dL (3.2-5.0); ALKALINE PHOSPHATASE 94 u/l (38-126); ANION GAP 20 (6-22 (CALC)); BILIRUBIN, TOTAL 0.5 mg/dL (0.0-1.4); BUN 11 mg/dL (7-17); BUN/CREATININE RATIO 19 (12-20 (CALC)); CARBON DIOXIDE 18 mmol/l (22-30); CHLORIDE 108 mmol/l (95-108); CREATININE 0.6 mg/dL (0.5-1.0); GFR > 60 ML/MIN (>=60 (CALC)); GFR FOR AFR.AMER. > 60 ML/MIN (>=60 (CALC)); LIPASE 50 u/l (23-300); POTASSIUM 3.8 mmol/l (3.5-5.1); SGOT/AST 17 u/l (14-36); SGPT/ALT 34 u/l (9-52); SODIUM 142 mmol/l (137-146); TOTAL PROTEIN 7.7 g/dL (6.3-8.2)
[2017-07-19 10:00] LABS: BARBITURATES NEGATIVE (NEGATIVE); COCAINE NEGATIVE (NEGATIVE); METHADONE NEGATIVE (NEGATIVE); OXCYCODONE POSITIVE (NEGATIVE); TETRAHYDROCANNABIONOL NEGATIVE (NEGATIVE); TRICYLIC ANTIDEPRESSANTS NEGATIVE (NEGATIVE)
[2017-07-19 10:27] VITALS: BP 123/71
[2017-07-19] MEDS ORDERED: CEPHALEXIN500 M1 PO (11:15)
[2017-07-19] MEDS ORDERED: VISTARIL 50MG C50 M1 PO (11:15)
[2017-07-19] MEDS ORDERED: ONDANSETRON4 MG PO (11:16)
== END 2017-07-19 11:51 | disposition home or self-care (01) | DRG 690 ==
LOC: ED 09:03
PROVIDERS: Family Medicine
DX: N39.0 Urinary tract infection, site not specified (principal); K52.9 Noninfective gastroenteritis and colitis, unspecified
CPT/HCPCS: J2060; Q9967

== ENCOUNTER 2018-02-26 01:52 | Emergency (ER) | payer SELFPAY ==
[~2018-02-26] VITALS: Ht 165.1 cm; Wt 77.0 kg
[~2018-02-26 01:52] MED LIST changes: +CEPHALEXIN500 M1 PO; +ONDANSETRON4 MG PO; +PERCOCET 10/31 COMBO PO; +VISTARIL 50MG C50 M1 PO
[2018-02-26] MEDS ORDERED: ULTRAM50 M1 PO (03:26)
[2018-02-26 03:49] VITALS: BP 132/82
== END 2018-02-26 03:50 | disposition home or self-care (01) | DRG 605 ==
LOC: ED 01:52
DX: S20.211A Contusion of right front wall of thorax, initial encounter (principal); M19.90 Unspecified osteoarthritis, unspecified site; F41.9 Anxiety disorder, unspecified; F17.210 Nicotine dependence, cigarettes, uncomplicated; V18.0XXA Pedal cycle driver injured in noncollision transport accident in nontraffic accident, initial encounter; Y93.55 Activity, bike riding

== ENCOUNTER 2018-06-04 04:39 | Inpatient (IN) | payer SELFPAY ==
[~2018-06-04] VITALS: Ht 165.1 cm; Wt 78.9 kg
[2018-06-04 05:01] LABS: URINE BILIRUBIN - DIPSTICK NEGATIVE (NEGATIVE); URINE BLOOD DIPSTICK LARGE (NEGATIVE); URINE COLOR YELLOW; URINE GLUCOSE - DIPSTICK NEGATIVE (NEGATIVE); URINE KETONE NEGATIVE (NEGATIVE); URINE PROTEIN - DIPSTICK NEGATIVE (NEG-TRACE); URINE SPECIFIC GRAVITY >=1.030; URINE UROBILINOGEN - DIPSTICK 0.2 E.U./dL (0.2)
[2018-06-04 05:02] LABS: URINE LEUK ESTERASE SMALL (NEGATIVE); URINE NITRITE - DIPSTICK POSITIVE (Negative)
[2018-06-04 05:03] LABS: HEMATOCRIT 44.4 % (37.0-47.0); HEMOGLOBIN 14.8 g/dl (12.0-16.0); IMMATURE GRANULOCYTES 0.5 % (0.0-5.0); MEAN CELL VOLUME 86.5 fL CALC (80.0-100.0); MEAN CORPUSCULAR HGB 28.8 pG CALC (26.0-32.0); MEAN CORPUSCULAR HGB CONC 33.3 g/L CALC (32.0-36.0); NEUT# 13.03 thou/uL (2.00-7.15); RED BLOOD COUNT 5.13 mill/uL (4.20-5.60); RED CELL DISTRI WIDTH 13.2 % (11.5-15.5)
[2018-06-04 05:08] LABS: URINE BACTERIA MANY hpf; URINE SQUAMOUS EPITHELIAL CELL FEW EPI/hpf (0-FEW); URINE WBC 50-100 WBC/hpf (0-5)
[2018-06-04 05:19] LABS: ALBUMIN 4.5 g/dL (3.2-5.0); ALKALINE PHOSPHATASE 92 u/l (38-126); AMYLASE 35 u/l (30-110); ANION GAP 17 (6-22 (CALC)); BILIRUBIN, TOTAL 0.6 mg/dL (0.0-1.4); BUN 19 mg/dL (7-17); BUN/CREATININE RATIO 38 (12-20 (CALC)); CARBON DIOXIDE 22 mmol/l (22-30); CHLORIDE 107 mmol/l (95-108); CREATININE 0.5 mg/dL (0.5-1.0); GFR > 60 ML/MIN (>=60 (CALC)); GFR FOR AFR.AMER. > 60 ML/MIN (>=60 (CALC)); LIPASE 48 u/l (23-300); SGOT/AST 23 u/l (14-36); SODIUM 141 mmol/l (137-146); TOTAL PROTEIN 8.1 g/dL (6.3-8.2)
[2018-06-04] MEDS ORDERED: GABAPENTIN300 M2 PO (05:24)
[2018-06-04 05:25] LABS: POTASSIUM 4.7 mmol/l (3.5-5.1)
[2018-06-04 07:35] VITALS: BP 127/93
[2018-06-04 15:49] VITALS: BP 121/91
[2018-06-05] VITALS (12 sets, daily range): BP systolic 87–132; BP diastolic 50–86
[2018-06-05 05:30] LABS: HEMATOCRIT 40.4 % (37.0-47.0); IMMATURE GRANULOCYTES 0.2 % (0.0-5.0); MEAN CELL VOLUME 90.2 fL CALC (80.0-100.0); MEAN CORPUSCULAR HGB CONC 32.2 g/L CALC (32.0-36.0); NEUT# 6.2 thou/uL (2.00-7.15); RED BLOOD COUNT 4.48 mill/uL (4.20-5.60); RED CELL DISTRI WIDTH 13.5 % (11.5-15.5)
[2018-06-05 05:46] LABS: PROTHROMBIN TIME 10.7 SECONDS (9.0-12.5)
[2018-06-05 05:47] LABS: ALKALINE PHOSPHATASE 106 u/l (38-126); AMYLASE 36 u/l (30-110); ANION GAP 12 (6-22 (CALC)); BILIRUBIN, TOTAL 0.9 mg/dL (0.0-1.4); BUN 21 mg/dL (7-17); BUN/CREATININE RATIO 53 (12-20 (CALC)); CARBON DIOXIDE 25 mmol/l (22-30); CHLORIDE 108 mmol/l (95-108); CREATININE 0.4 mg/dL (0.5-1.0); GFR > 60 ML/MIN (>=60 (CALC)); GFR FOR AFR.AMER. > 60 ML/MIN (>=60 (CALC)); LIPASE 44 u/l (23-300); POTASSIUM 4.1 mmol/l (3.5-5.1); SODIUM 141 mmol/l (137-146)
[2018-06-05 05:48] LABS: SGOT/AST 177 u/l (14-36); TOTAL PROTEIN 5.8 g/dL (6.3-8.2)
[2018-06-06] VITALS (8 sets, daily range): BP systolic 97–152; BP diastolic 62–91
[2018-06-06 04:59] LABS: HEMATOCRIT 34.9 % (37.0-47.0); HEMOGLOBIN 11.2 g/dl (12.0-16.0); IMMATURE GRANULOCYTES 0.4 % (0.0-5.0); MEAN CELL VOLUME 90.9 fL CALC (80.0-100.0); MEAN CORPUSCULAR HGB 29.2 pG CALC (26.0-32.0); MEAN CORPUSCULAR HGB CONC 32.1 g/L CALC (32.0-36.0); NEUT# 9.92 thou/uL (2.00-7.15); RED BLOOD COUNT 3.84 mill/uL (4.20-5.60); RED CELL DISTRI WIDTH 13.6 % (11.5-15.5)
[2018-06-06 05:17] LABS: ALBUMIN 2.5 g/dL (3.2-5.0); ALKALINE PHOSPHATASE 89 u/l (38-126); AMYLASE < 30 u/l (30-110); ANION GAP 12 (6-22 (CALC)); BILIRUBIN, TOTAL 0.8 mg/dL (0.0-1.4); BUN 14 mg/dL (7-17); BUN/CREATININE RATIO 28 (12-20 (CALC)); CARBON DIOXIDE 24 mmol/l (22-30); CHLORIDE 106 mmol/l (95-108); CREATININE 0.5 mg/dL (0.5-1.0); GFR > 60 ML/MIN (>=60 (CALC)); GFR FOR AFR.AMER. > 60 ML/MIN (>=60 (CALC)); LIPASE < 10 u/l (23-300); MAGNESIUM 1.7 mg/dL (1.6-2.3); POTASSIUM 3.5 mmol/l (3.5-5.1); SGOT/AST 63 u/l (14-36); SODIUM 139 mmol/l (137-146); TOTAL PROTEIN 4.9 g/dL (6.3-8.2)
[2018-06-07 04:15] VITALS: BP 92/65
[2018-06-07 05:12] LABS: HEMATOCRIT 30.1 % (37.0-47.0); HEMOGLOBIN 9.6 g/dl (12.0-16.0); IMMATURE GRANULOCYTES 0.4 % (0.0-5.0); MEAN CELL VOLUME 91.5 fL CALC (80.0-100.0); MEAN CORPUSCULAR HGB 29.2 pG CALC (26.0-32.0); MEAN CORPUSCULAR HGB CONC 31.9 g/L CALC (32.0-36.0); NEUT# 7.88 thou/uL (2.00-7.15); RED BLOOD COUNT 3.29 mill/uL (4.20-5.60); RED CELL DISTRI WIDTH 13.5 % (11.5-15.5)
[2018-06-07 05:25] LABS: ALBUMIN 2.4 g/dL (3.2-5.0); ALKALINE PHOSPHATASE 79 u/l (38-126); AMYLASE < 30 u/l (30-110); ANION GAP 11 (6-22 (CALC)); BILIRUBIN, TOTAL 0.5 mg/dL (0.0-1.4); BUN 11 mg/dL (7-17); BUN/CREATININE RATIO 27 (12-20 (CALC)); CARBON DIOXIDE 25 mmol/l (22-30); CHLORIDE 105 mmol/l (95-108); CREATININE 0.4 mg/dL (0.5-1.0); GFR > 60 ML/MIN (>=60 (CALC)); GFR FOR AFR.AMER. > 60 ML/MIN (>=60 (CALC)); LIPASE 12 u/l (23-300); MAGNESIUM 1.7 mg/dL (1.6-2.3); POTASSIUM 3.5 mmol/l (3.5-5.1); SGOT/AST 32 u/l (14-36); SODIUM 138 mmol/l (137-146); TOTAL PROTEIN 4.8 g/dL (6.3-8.2)
[2018-06-07 07:10] VITALS: BP 121/85
[2018-06-07 15:30] VITALS: BP 113/76
[2018-06-07 19:20] VITALS: BP 109/75
[2018-06-07 23:55] VITALS: BP 106/74
[2018-06-08 04:30] VITALS: BP 125/75
[2018-06-08 05:26] LABS: HEMOGLOBIN 9.7 g/dl (12.0-16.0); IMMATURE GRANULOCYTES 0.6 % (0.0-5.0); MEAN CELL VOLUME 90.6 fL CALC (80.0-100.0); MEAN CORPUSCULAR HGB 29.3 pG CALC (26.0-32.0); MEAN CORPUSCULAR HGB CONC 32.3 g/L CALC (32.0-36.0); NEUT# 5.56 thou/uL (2.00-7.15); RED BLOOD COUNT 3.31 mill/uL (4.20-5.60); RED CELL DISTRI WIDTH 13.2 % (11.5-15.5)
[2018-06-08 05:41] LABS: ALBUMIN 2.5 g/dL (3.2-5.0); ALKALINE PHOSPHATASE 77 u/l (38-126); AMYLASE < 30 u/l (30-110); ANION GAP 12 (6-22 (CALC)); BILIRUBIN, TOTAL 0.4 mg/dL (0.0-1.4); BUN 7 mg/dL (7-17); BUN/CREATININE RATIO 18 (12-20 (CALC)); CARBON DIOXIDE 26 mmol/l (22-30); CHLORIDE 104 mmol/l (95-108); CREATININE 0.4 mg/dL (0.5-1.0); GFR > 60 ML/MIN (>=60 (CALC)); GFR FOR AFR.AMER. > 60 ML/MIN (>=60 (CALC)); LIPASE 28 u/l (23-300); MAGNESIUM 1.7 mg/dL (1.6-2.3); POTASSIUM 3.3 mmol/l (3.5-5.1); SGOT/AST 22 u/l (14-36); SODIUM 139 mmol/l (137-146); TOTAL PROTEIN 5.1 g/dL (6.3-8.2)
[2018-06-08 09:10] VITALS: BP 106/70
[2018-06-08 16:20] VITALS: BP 118/80
[2018-06-08 19:45] VITALS: BP 106/74
[2018-06-09 00:05] VITALS: BP 118/82
[2018-06-09 04:30] VITALS: BP 111/76
[2018-06-09 07:56] VITALS: BP 108/76
[2018-06-09 16:00] VITALS: BP 104/69
[2018-06-09 20:22] VITALS: BP 112/61
[2018-06-10 04:00] VITALS: BP 102/72
[2018-06-10 04:56] LABS: HEMATOCRIT 31.6 % (37.0-47.0); HEMOGLOBIN 10.3 g/dl (12.0-16.0); IMMATURE GRANULOCYTES 0.9 % (0.0-5.0); MEAN CELL VOLUME 89.8 fL CALC (80.0-100.0); MEAN CORPUSCULAR HGB 29.3 pG CALC (26.0-32.0); MEAN CORPUSCULAR HGB CONC 32.6 g/L CALC (32.0-36.0); NEUT# 3.82 thou/uL (2.00-7.15); RED BLOOD COUNT 3.52 mill/uL (4.20-5.60); RED CELL DISTRI WIDTH 13.2 % (11.5-15.5)
[2018-06-10 05:10] LABS: ALBUMIN 2.4 g/dL (3.2-5.0); ALKALINE PHOSPHATASE 59 u/l (38-126); ANION GAP 11 (6-22 (CALC)); BILIRUBIN, TOTAL 0.2 mg/dL (0.0-1.4); BUN 4 mg/dL (7-17); BUN/CREATININE RATIO 9 (12-20 (CALC)); CARBON DIOXIDE 27 mmol/l (22-30); CHLORIDE 102 mmol/l (95-108); CREATININE 0.4 mg/dL (0.5-1.0); GFR > 60 ML/MIN (>=60 (CALC)); GFR FOR AFR.AMER. > 60 ML/MIN (>=60 (CALC)); MAGNESIUM 1.6 mg/dL (1.6-2.3); POTASSIUM 3.4 mmol/l (3.5-5.1); SGOT/AST 16 u/l (14-36); SODIUM 138 mmol/l (137-146); TOTAL PROTEIN 4.8 g/dL (6.3-8.2)
[2018-06-10 08:11] VITALS: BP 119/76
[2018-06-10 15:26] VITALS: BP 92/59
[2018-06-10 18:57] VITALS: BP 112/80
[2018-06-11 04:00] VITALS: BP 98/74
[2018-06-11 05:48] LABS: HEMATOCRIT 30.9 % (37.0-47.0); IMMATURE GRANULOCYTES 1.2 % (0.0-5.0); MEAN CELL VOLUME 89.6 fL CALC (80.0-100.0); MEAN CORPUSCULAR HGB CONC 32.4 g/L CALC (32.0-36.0); NEUT# 3.64 thou/uL (2.00-7.15); RED BLOOD COUNT 3.45 mill/uL (4.20-5.60); RED CELL DISTRI WIDTH 13.5 % (11.5-15.5)
[2018-06-11 06:10] LABS: ALBUMIN 2.5 g/dL (3.2-5.0); ALKALINE PHOSPHATASE 58 u/l (38-126); ANION GAP 11 (6-22 (CALC)); BILIRUBIN, TOTAL 0.2 mg/dL (0.0-1.4); BUN 6 mg/dL (7-17); BUN/CREATININE RATIO 15 (12-20 (CALC)); CARBON DIOXIDE 28 mmol/l (22-30); CHLORIDE 103 mmol/l (95-108); CREATININE 0.4 mg/dL (0.5-1.0); GFR > 60 ML/MIN (>=60 (CALC)); GFR FOR AFR.AMER. > 60 ML/MIN (>=60 (CALC)); MAGNESIUM 1.6 mg/dL (1.6-2.3); POTASSIUM 3.4 mmol/l (3.5-5.1); SGOT/AST 20 u/l (14-36); SODIUM 138 mmol/l (137-146)
[2018-06-11 08:29] VITALS: BP 149/90
[2018-06-11] MEDS ORDERED: OXYCODONE/ACETA1 TA8 PO (14:32)
[2018-06-11] MEDS ORDERED: PANTOPRAZOLE SO40 M1 PO (14:32)
== END 2018-06-11 14:55 | disposition home or self-care (01) | DRG 336 ==
LOC: ED 04:39 → ED-I 06:30 → ED 06:32 → ICU 06:42 → MS2 06:42 → ICU 06:44 → MS2 11:17
PROVIDERS: Emergency Medicine; Internal Medicine Nephrology; ADMIT Internal Medicine; ATTEND Internal Medicine
PROC: 0T9B70Z Drainage of Bladder with Drainage Device, Via Natural or Artificial Opening (ICD-10-PCS; 2018-06-04)
PROC: 0DN80ZZ Release Small Intestine, Open Approach (ICD-10-PCS; principal; 2018-06-05)
PROC: 0DNU4ZZ Release Omentum, Percutaneous Endoscopic Approach (ICD-10-PCS; 2018-06-05)
PROC: 0DTJ0ZZ Resection of Appendix, Open Approach (ICD-10-PCS; 2018-06-05)
PROC: 0DJD4ZZ Inspection of Lower Intestinal Tract, Percutaneous Endoscopic Approach (ICD-10-PCS; 2018-06-05)
DX: K56.52 Intestinal adhesions [bands] with complete obstruction (principal); K86.0 Alcohol-induced chronic pancreatitis; N39.0 Urinary tract infection, site not specified; J44.1 Chronic obstructive pulmonary disease with (acute) exacerbation; F41.1 Generalized anxiety disorder; G62.9 Polyneuropathy, unspecified; M19.90 Unspecified osteoarthritis, unspecified site; F17.200 Nicotine dependence, unspecified, uncomplicated; Z79.1 Long term (current) use of non-steroidal anti-inflammatories (NSAID); Z87.440 Personal history of urinary (tract) infections
CPT/HCPCS: J1650; J2060; J2710; S0164

== ENCOUNTER 2018-06-19 18:06 | Emergency (ER) | payer SELFPAY ==
[~2018-06-19] VITALS: Ht 165.1 cm; Wt 80.9 kg
[~2018-06-19 18:06] MED LIST changes: +GABAPENTIN300 M2 PO; +OXYCODONE/ACETA1 TA8 PO; +PANTOPRAZOLE SO40 M1 PO
[2018-06-19] MEDS ORDERED: BACTRIM DS1 TAB PO (18:18)
[2018-06-19] MEDS ORDERED: PERCOCET 5/325M1 TAB PO (18:19)
[2018-06-19 18:51] LABS: HEMATOCRIT 39.2 % (37.0-47.0); HEMOGLOBIN 12.5 g/dl (12.0-16.0); IMMATURE GRANULOCYTES 0.7 % (0.0-5.0); MEAN CELL VOLUME 87.9 fL CALC (80.0-100.0); MEAN CORPUSCULAR HGB CONC 31.9 g/L CALC (32.0-36.0); NEUT# 6.51 thou/uL (2.00-7.15); RED BLOOD COUNT 4.46 mill/uL (4.20-5.60); RED CELL DISTRI WIDTH 13.5 % (11.5-15.5)
[2018-06-19 19:02] LABS: BILIRUBIN, TOTAL 0.3 mg/dL (0.0-1.4); BUN 11 mg/dL (7-17); BUN/CREATININE RATIO 20 (12-20 (CALC)); CARBON DIOXIDE 26 mmol/l (22-30); CHLORIDE 99 mmol/l (95-108); CREATININE 0.6 mg/dL (0.5-1.0); GFR > 60 ML/MIN (>=60 (CALC)); GFR FOR AFR.AMER. > 60 ML/MIN (>=60 (CALC)); SGOT/AST 21 u/l (14-36); SODIUM 136 mmol/l (137-146)
[2018-06-19 19:03] LABS: ALBUMIN 4.1 g/dL (3.2-5.0); ALKALINE PHOSPHATASE 93 u/l (38-126); ANION GAP 16 (6-22 (CALC)); POTASSIUM 4.5 mmol/l (3.5-5.1); TOTAL PROTEIN 7.8 g/dL (6.3-8.2)
[2018-06-19 19:49] LABS: URINE BILIRUBIN - DIPSTICK NEGATIVE (NEGATIVE); URINE BLOOD DIPSTICK MODERATE (NEGATIVE); URINE COLOR YELLOW; URINE GLUCOSE - DIPSTICK NEGATIVE (NEGATIVE); URINE KETONE NEGATIVE (NEGATIVE); URINE LEUK ESTERASE NEGATIVE (NEGATIVE); URINE NITRITE - DIPSTICK NEGATIVE (Negative); URINE PH 5.5 (4.5-8.0); URINE PROTEIN - DIPSTICK NEGATIVE (NEG-TRACE); URINE SPECIFIC GRAVITY >=1.030; URINE UROBILINOGEN - DIPSTICK 0.2 E.U./dL (0.2)
[2018-06-19 20:08] LABS: URINE SQUAMOUS EPITHELIAL CELL FEW EPI/hpf (0-FEW)
[2018-06-19 20:47] VITALS: BP 143/79
== END 2018-06-19 20:55 | disposition home or self-care (01) | DRG 948 ==
LOC: ED 18:06
PROVIDERS: Emergency Medicine
DX: G89.18 Other acute postprocedural pain (principal); N39.0 Urinary tract infection, site not specified; F17.210 Nicotine dependence, cigarettes, uncomplicated
CPT/HCPCS: Q9967

== ENCOUNTER 2018-08-17 10:18 | Emergency (ER) | payer SELFPAY ==
[~2018-08-17] VITALS: Ht 165.1 cm; Wt 80.0 kg
[2018-08-17 11:13] LABS: HEMATOCRIT 38.5 % (37.0-47.0); HEMOGLOBIN 12.3 g/dl (12.0-16.0); IMMATURE GRANULOCYTES 0.6 % (0.0-5.0); MEAN CELL VOLUME 87.1 fL CALC (80.0-100.0); MEAN CORPUSCULAR HGB 27.8 pG CALC (26.0-32.0); MEAN CORPUSCULAR HGB CONC 31.9 g/L CALC (32.0-36.0); NEUT# 8.72 thou/uL (2.00-7.15); RED BLOOD COUNT 4.42 mill/uL (4.20-5.60); RED CELL DISTRI WIDTH 13.5 % (11.5-15.5)
[2018-08-17 11:49] LABS: ALBUMIN 3.8 g/dL (3.2-5.0); ALKALINE PHOSPHATASE 129 u/l (38-126); ANION GAP 13 (6-22 (CALC)); BUN 17 mg/dL (7-17); BUN/CREATININE RATIO 33 (12-20 (CALC)); CARBON DIOXIDE 26 mmol/l (22-30); CHLORIDE 104 mmol/l (95-108); CREATININE 0.5 mg/dL (0.5-1.0); GFR > 60 ML/MIN (>=60 (CALC)); GFR FOR AFR.AMER. > 60 ML/MIN (>=60 (CALC)); LIPASE 487 u/l (23-300); POTASSIUM 4.5 mmol/l (3.5-5.1); SODIUM 139 mmol/l (137-146)
[2018-08-17 11:52] LABS: BILIRUBIN, TOTAL 0.5 mg/dL (0.0-1.4); SGOT/AST 147 u/l (14-36)
[2018-08-17 12:54] LABS: URINE BILIRUBIN - DIPSTICK NEGATIVE (NEGATIVE); URINE BLOOD DIPSTICK SMALL (NEGATIVE); URINE GLUCOSE - DIPSTICK NEGATIVE (NEGATIVE); URINE KETONE NEGATIVE (NEGATIVE); URINE PROTEIN - DIPSTICK NEGATIVE (NEG-TRACE); URINE SPECIFIC GRAVITY 1.015; URINE UROBILINOGEN - DIPSTICK 0.2 E.U./dL (0.2)
[2018-08-17 12:56] LABS: URINE LEUK ESTERASE SMALL (NEGATIVE); URINE NITRITE - DIPSTICK POSITIVE (Negative)
[2018-08-17 12:57] LABS: URINE BACTERIA MANY hpf; URINE COLOR DK. YELLOW; URINE EPITHELIAL CELLS MODERATE EPI/hpf (0-FEW)
[2018-08-17 12:58] LABS: BARBITURATES NEGATIVE (NEGATIVE); COCAINE NEGATIVE (NEGATIVE); METHADONE NEGATIVE (NEGATIVE); OXCYCODONE POSITIVE (NEGATIVE); TETRAHYDROCANNABIONOL NEGATIVE (NEGATIVE); TRICYLIC ANTIDEPRESSANTS NEGATIVE (NEGATIVE)
[2018-08-17] MEDS ORDERED: PROTONIX40 M2 PO (14:09)
[2018-08-17] MEDS ORDERED: ONDANSETRON4 MG PO (14:09)
[2018-08-17] MEDS ORDERED: KEFLEX500 M1 PO (14:10)
[2018-08-17 14:16] VITALS: BP 118/84
== END 2018-08-17 14:38 | disposition home or self-care (01) | DRG 689 ==
LOC: ED 10:18
PROVIDERS: Emergency Medicine
DX: N39.0 Urinary tract infection, site not specified (principal); K85.90 Acute pancreatitis without necrosis or infection, unspecified; B96.1 Klebsiella pneumoniae [K. pneumoniae] as the cause of diseases classified elsewhere; R10.11 Right upper quadrant pain; R10.13 Epigastric pain; R11.2 Nausea with vomiting, unspecified; R78.89 Finding of other specified substances, not normally found in blood
CPT/HCPCS: Q9967; S0164

== ENCOUNTER 2019-03-10 11:56 | Emergency (ER) | payer SELFPAY ==
[~2019-03-10] VITALS: Ht 165.1 cm; Wt 80.0 kg
[~2019-03-10 11:56] MED LIST changes: +KEFLEX500 M1 PO
[2019-03-10] MEDS ORDERED: CODEINE/GUAIFEN1 SOL PO (13:52)
[2019-03-10] MEDS ORDERED: ZITHROMAX250 MG PO (13:52)
[2019-03-10] MEDS ORDERED: TAM75CAP PO (13:52)
[2019-03-10] MEDS ORDERED: MEDDOSEPAK PO (13:52)
[2019-03-10 14:05] VITALS: BP 131/84
== END 2019-03-10 14:05 | disposition home or self-care (01) | DRG 203 ==
LOC: ED 11:56
DX: J45.909 Unspecified asthma, uncomplicated (principal); Z20.828 Contact with and (suspected) exposure to other viral communicable diseases

== ENCOUNTER 2019-07-19 | Emergency (ER) | payer SELFPAY ==
[~2019-07-19] MED LIST changes: +CODEINE/GUAIFEN1 SOL PO; +TAM75CAP PO; +ZITHROMAX250 MG PO
[2019-07-19 18:18] LABS: HEMATOCRIT 40.2 % (37.0-47.0); HEMOGLOBIN 13.1 g/dl (12.0-16.0); IMMATURE GRANULOCYTES 0.6 % (0.0-5.0); MEAN CORPUSCULAR HGB 26.7 pG CALC (26.0-32.0); MEAN CORPUSCULAR HGB CONC 32.6 g/dL CAL (32.0-36.0); NEUT# 6.32 thou/uL (2.00-7.15); RED BLOOD COUNT 4.9 mill/uL (4.20-5.60); RED CELL DISTRI WIDTH 15.1 % (11.5-15.5)
[2019-07-19 18:52] LABS: ALKALINE PHOSPHATASE 86 u/l (38-126); ANION GAP 18 (6-22 (CALC)); BILIRUBIN, TOTAL 0.6 mg/dL (0.0-1.4); BUN 10 mg/dL (7-17); BUN/CREATININE RATIO 8 (12-20 (CALC)); CHLORIDE 107 mmol/l (95-108); CREATININE 1.2 mg/dL (0.5-1.0); ETHYL ALCOHOL 0 mg/dl (0-30); GFR 47 ML/MIN (>=60 (CALC)); GFR FOR AFR.AMER. 56 ML/MIN (>=60 (CALC)); POTASSIUM 4.2 mmol/l (3.5-5.1); SGOT/AST 40 u/l (14-36); SODIUM 140 mmol/l (137-146); TOTAL PROTEIN 8.2 g/dL (6.3-8.2)
[2019-07-19 18:58] LABS: CARBON DIOXIDE 19 mmol/l (22-30)
[2019-07-19 20:17] LABS: URINE BILIRUBIN - DIPSTICK NEGATIVE (NEGATIVE); URINE BLOOD DIPSTICK TRACE-INTACT (NEGATIVE); URINE COLOR YELLOW; URINE GLUCOSE - DIPSTICK NEGATIVE (NEGATIVE); URINE KETONE TRACE mg/dL (NEGATIVE); URINE LEUK ESTERASE TRACE (NEGATIVE); URINE NITRITE - DIPSTICK NEGATIVE (Negative); URINE PROTEIN - DIPSTICK TRACE mg/dL (NEG-TRACE); URINE UROBILINOGEN - DIPSTICK 0.2 E.U./dL (0.2)
[2019-07-19 20:21] LABS: BARBITURATES NEGATIVE (NEGATIVE); COCAINE NEGATIVE (NEGATIVE); METHADONE NEGATIVE (NEGATIVE); TETRAHYDROCANNABIONOL POSITIVE (NEGATIVE); TRICYLIC ANTIDEPRESSANTS NEGATIVE (NEGATIVE)
[2019-07-19 20:22] LABS: OXCYCODONE NEGATIVE (NEGATIVE)
[2019-07-19] MEDS ORDERED: TAM75CAP PO (20:32)
[2019-12-17] MEDS ORDERED: EFFEXOR75 MG PO (09:33)
[2019-12-17] MEDS ORDERED: EFFEXOR100 MG PO (09:33)
[2019-12-17] MEDS ORDERED: ROBITUSSIN COLD PO (09:34)
[2019-12-17] MEDS ORDERED: ALPRAZOLAM ER1 MG PO (09:34)
[2019-12-17] MEDS ORDERED: FLU PO (09:34)
[2020-01-05] MEDS ORDERED: MULTI VIT PO (09:16)
[2020-01-05] MEDS ORDERED: ALBUTEROL SUL0.083 % IN (09:16)
[2020-01-05] MEDS ORDERED: VENTOLIN HFA IN (09:17)
== END 2019-07-19 20:51 | disposition home or self-care (01) | DRG 897 ==
PROVIDERS: Family Medicine
DX: F19.929 Other psychoactive substance use, unspecified with intoxication, unspecified (principal); J11.1 Influenza due to unidentified influenza virus with other respiratory manifestations; J44.9 Chronic obstructive pulmonary disease, unspecified; F17.200 Nicotine dependence, unspecified, uncomplicated

== ENCOUNTER 2020-01-11 06:42 | Day surgery (SDC) | payer SELFPAY ==
[~2020-01-11] VITALS: Ht 165.1 cm; Wt 81.6 kg
[~2020-01-11 06:42] MED LIST changes: +ALBUTEROL SUL0.083 % IN; +ALPRAZOLAM ER1 MG PO; +EFFEXOR100 MG PO; +EFFEXOR75 MG PO; +FLU PO; +MULTI VIT PO; +ROBITUSSIN COLD PO; +VENTOLIN HFA IN
[2020-01-11 07:31] VITALS: BP 123/75
== END 2020-01-11 07:43 | disposition home or self-care (01) | DRG 392 ==
LOC: ENDO 06:42 → ORM 08:45 → ENDO 08:45
PROVIDERS: ATTEND Surgery
DX: R10.9 Unspecified abdominal pain (principal); R19.7 Diarrhea, unspecified; J44.9 Chronic obstructive pulmonary disease, unspecified; F17.210 Nicotine dependence, cigarettes, uncomplicated; Z87.440 Personal history of urinary (tract) infections; Z90.49 Acquired absence of other specified parts of digestive tract; Z20.828 Contact with and (suspected) exposure to other viral communicable diseases; Z53.9 Procedure and treatment not carried out, unspecified reason

== ENCOUNTER 2020-11-26 08:44 | Emergency (ER) | payer SELFPAY ==
[2020-11-26 09:23] LABS: HEMATOCRIT 40.8 % (37.0-47.0); HEMOGLOBIN 12.8 g/dl (12.0-16.0); IMMATURE GRANULOCYTES 0.8 % (0.0-5.0); MEAN CELL VOLUME 85.9 fL CALC (80.0-100.0); MEAN CORPUSCULAR HGB 26.9 pG CALC (26.0-32.0); MEAN CORPUSCULAR HGB CONC 31.4 g/dL CAL (32.0-36.0); NEUT# 4.72 thou/uL (2.00-7.15); RED BLOOD COUNT 4.75 mill/uL (4.20-5.60); RED CELL DISTRI WIDTH 13.5 % (11.5-15.5)
[2020-11-26 09:40] LABS: ACT PARTIAL THROMBO TIME 23.9 SECONDS (20.0-32.5); ALBUMIN 3.6 g/dL (3.2-5.0); AMYLASE 44 u/l (30-110); BUN 18 mg/dL (7-17); BUN/CREATININE RATIO 21 (12-20 (CALC)); CHLORIDE 102 mmol/l (95-108); CREATININE 0.8 mg/dL (0.5-1.0); ETHYL ALCOHOL 0 mg/dl (0-30); GFR > 60 ML/MIN (>=60 (CALC)); GFR FOR AFR.AMER. > 60 ML/MIN (>=60 (CALC)); LIPASE 69 u/l (23-300); PROTHROMBIN TIME 10.9 SECONDS (9.0-12.5); SODIUM 134 mmol/l (137-146); TOTAL PROTEIN 7.5 g/dL (6.3-8.2)
[2020-11-26 09:47] LABS: ALKALINE PHOSPHATASE 249 u/l (38-126); ANION GAP 11 (6-22 (CALC)); BILIRUBIN, TOTAL 1.3 mg/dL (0.0-1.4); CARBON DIOXIDE 24 mmol/l (22-30)
[2020-11-26 10:00] LABS: SGOT/AST 2097 u/l (14-36)
[2020-11-26 12:02] VITALS: BP 84/52
== END 2020-11-26 12:20 | disposition short-term general hospital (02) | DRG 872 ==
LOC: ED 08:44
DX: A41.9 Sepsis, unspecified organism (principal); K83.8 Other specified diseases of biliary tract; J44.9 Chronic obstructive pulmonary disease, unspecified; F41.9 Anxiety disorder, unspecified; Z87.440 Personal history of urinary (tract) infections; Z90.49 Acquired absence of other specified parts of digestive tract; Z20.822 Contact with and (suspected) exposure to COVID-19
CPT/HCPCS: Q9967

== ENCOUNTER 2020-12-01 13:42 | Emergency (ER) | payer SELFPAY ==
[~2020-12-01] VITALS: Ht 165.1 cm; Wt 75.0 kg
[2020-12-01 14:55] LABS: URINE BILIRUBIN - DIPSTICK NEGATIVE (NEGATIVE); URINE BLOOD DIPSTICK TRACE-INTACT (NEGATIVE); URINE COLOR YELLOW; URINE GLUCOSE - DIPSTICK NEGATIVE (NEGATIVE); URINE KETONE NEGATIVE (NEGATIVE); URINE PROTEIN - DIPSTICK NEGATIVE (NEG-TRACE); URINE SPECIFIC GRAVITY 1.015; URINE UROBILINOGEN - DIPSTICK 0.2 E.U./dL (0.2)
[2020-12-01 14:56] LABS: URINE LEUK ESTERASE SMALL (NEGATIVE); URINE NITRITE - DIPSTICK NEGATIVE (Negative)
[2020-12-01 15:10] LABS: URINE SQUAMOUS EPITHELIAL CELL MODERATE EPI/hpf (0-FEW)
[2020-12-01 15:31] LABS: HEMATOCRIT 42.9 % (37.0-47.0); HEMOGLOBIN 13.4 g/dl (12.0-16.0); MEAN CORPUSCULAR HGB 27.2 pG CALC (26.0-32.0); MEAN CORPUSCULAR HGB CONC 31.2 g/dL CAL (32.0-36.0); NEUT# 7.19 thou/uL (2.00-7.15); RED BLOOD COUNT 4.93 mill/uL (4.20-5.60); RED CELL DISTRI WIDTH 14.1 % (11.5-15.5)
[2020-12-01 15:32] LABS: IMMATURE GRANULOCYTES 11.4 % (0.0-5.0)
[2020-12-01 15:43] LABS: ALBUMIN 3.6 g/dL (3.2-5.0); ALKALINE PHOSPHATASE 230 u/l (38-126); ANION GAP 12 (6-22 (CALC)); BILIRUBIN, TOTAL 0.3 mg/dL (0.0-1.4); BUN 16 mg/dL (7-17); BUN/CREATININE RATIO 36 (12-20 (CALC)); CARBON DIOXIDE 25 mmol/l (22-30); CHLORIDE 102 mmol/l (95-108); CREATININE 0.5 mg/dL (0.5-1.0); GFR > 60 ML/MIN (>=60 (CALC)); GFR FOR AFR.AMER. > 60 ML/MIN (>=60 (CALC)); LIPASE 28 u/l (23-300); POTASSIUM 4.2 mmol/l (3.5-5.1); SODIUM 135 mmol/l (137-146); TOTAL PROTEIN 7.8 g/dL (6.3-8.2)
[2020-12-01 15:44] LABS: SGOT/AST 74 u/l (14-36)
[2020-12-01] MEDS ORDERED: OMNI-PAC300 MG PO (17:11)
[2020-12-01] MEDS ORDERED: TRAMADOL HYDROC50 M1 PO (17:11)
[2020-12-01 17:55] VITALS: BP 137/80
== END 2020-12-01 18:03 | disposition home or self-care (01) | DRG 552 ==
LOC: ED 13:42
PROVIDERS: Family Medicine
DX: M54.6 Pain in thoracic spine (principal); N39.0 Urinary tract infection, site not specified; J44.9 Chronic obstructive pulmonary disease, unspecified; E11.9 Type 2 diabetes mellitus without complications; M19.90 Unspecified osteoarthritis, unspecified site; F41.9 Anxiety disorder, unspecified; F17.210 Nicotine dependence, cigarettes, uncomplicated; Z86.14 Personal history of Methicillin resistant Staphylococcus aureus infection; Z90.49 Acquired absence of other specified parts of digestive tract; Z87.440 Personal history of urinary (tract) infections
CPT/HCPCS: Q9967

== ENCOUNTER 2021-01-03 10:43 | Inpatient (IN) | payer MEDICAID ==
[~2021-01-03] VITALS: Ht 165.1 cm; Wt 85.0 kg
[~2021-01-03 10:43] MED LIST changes: +OMNI-PAC300 MG PO; +TRAMADOL HYDROC50 M1 PO
--- NOTE | 2021-01-03 10:43 | NUR ---
PT TO ROOM VIA EMS STRETCHER.
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
[2021-01-03 11:31] LABS: URINE BILIRUBIN - DIPSTICK NEGATIVE (NEGATIVE); URINE BLOOD DIPSTICK LARGE (NEGATIVE); URINE COLOR YELLOW; URINE GLUCOSE - DIPSTICK NEGATIVE (NEGATIVE); URINE KETONE NEGATIVE (NEGATIVE); URINE LEUK ESTERASE TRACE (NEGATIVE); URINE NITRITE - DIPSTICK POSITIVE (Negative); URINE PROTEIN - DIPSTICK TRACE mg/dL (NEG-TRACE); URINE SPECIFIC GRAVITY >=1.030; URINE UROBILINOGEN - DIPSTICK 0.2 E.U./dL (0.2)
[2021-01-03 11:37] LABS: HEMATOCRIT 40.1 % (37.0-47.0); HEMOGLOBIN 12.6 g/dl (12.0-16.0); IMMATURE GRANULOCYTES 0.6 % (0.0-5.0); MEAN CELL VOLUME 86.8 fL CALC (80.0-100.0); MEAN CORPUSCULAR HGB 27.3 pG CALC (26.0-32.0); MEAN CORPUSCULAR HGB CONC 31.4 g/dL CAL (32.0-36.0); NEUT# 8.99 thou/uL (2.00-7.15); RED BLOOD COUNT 4.62 mill/uL (4.20-5.60); RED CELL DISTRI WIDTH 13.9 % (11.5-15.5); URINE BACTERIA MANY hpf; URINE SQUAMOUS EPITHELIAL CELL FEW EPI/hpf (0-FEW); URINE WBC 50-100 WBC/hpf (0-5)
[2021-01-03 11:47] LABS: ALBUMIN 3.6 g/dL (3.2-5.0); ALKALINE PHOSPHATASE 74 u/l (38-126); ANION GAP 9 (6-22 (CALC)); BILIRUBIN, TOTAL 0.3 mg/dL (0.0-1.4); BUN 13 mg/dL (7-17); BUN/CREATININE RATIO 24 (12-20 (CALC)); CARBON DIOXIDE 28 mmol/l (22-30); CHLORIDE 100 mmol/l (95-108); CREATININE 0.5 mg/dL (0.5-1.0); GFR > 60 ML/MIN (>=60 (CALC)); GFR FOR AFR.AMER. > 60 ML/MIN (>=60 (CALC)); LIPASE 52 u/l (23-300); MAGNESIUM 2.1 mg/dL (1.6-2.3); POTASSIUM 3.9 mmol/l (3.5-5.1); SGOT/AST 25 u/l (14-36); SODIUM 133 mmol/l (137-146); TOTAL PROTEIN 7.5 g/dL (6.3-8.2)
--- NOTE | 2021-01-03 12:05 | NUR ---
OFFICER JYO AT BEDSIDE WITH PATIENT
--- NOTE | 2021-01-03 20:55 | NUR ---
UOP 500+
--- NOTE | 2021-01-04 00:32 | NUR ---
UOP 1000 CC
--- NOTE | 2021-01-04 02:00 | NUR ---
NO CHANGES NOTED. NAD
--- NOTE | 2021-01-04 04:00 | NUR ---
AWAKE SITTING UP IN BED.
--- NOTE | 2021-01-04 05:41 | NUR ---
UOP 1000 CC
[2021-01-04 06:05] LABS: IMMATURE GRANULOCYTES 0.2 % (0.0-5.0); MEAN CELL VOLUME 86.9 fL CALC (80.0-100.0); MEAN CORPUSCULAR HGB 27.6 pG CALC (26.0-32.0); MEAN CORPUSCULAR HGB CONC 31.8 g/dL CAL (32.0-36.0); NEUT# 12.91 thou/uL (2.00-7.15); RED BLOOD COUNT 3.73 mill/uL (4.20-5.60); RED CELL DISTRI WIDTH 13.7 % (11.5-15.5)
[2021-01-04 06:06] LABS: HEMATOCRIT 32.4 % (37.0-47.0); HEMOGLOBIN 10.3 g/dl (12.0-16.0)
--- NOTE | 2021-01-04 06:16 | NUR ---
CLEANED OF LARGE LIQUID BROWN STOOL.
[2021-01-04 06:37] LABS: ALKALINE PHOSPHATASE 72 u/l (38-126); ANION GAP 6 (6-22 (CALC)); BUN 4 mg/dL (7-17); BUN/CREATININE RATIO 9 (12-20 (CALC)); CARBON DIOXIDE 28 mmol/l (22-30); CHLORIDE 107 mmol/l (95-108); CREATININE 0.4 mg/dL (0.5-1.0); GFR > 60 ML/MIN (>=60 (CALC)); GFR FOR AFR.AMER. > 60 ML/MIN (>=60 (CALC)); SGOT/AST 23 u/l (14-36); SODIUM 137 mmol/l (137-146); TOTAL PROTEIN 6.2 g/dL (6.3-8.2)
[2021-01-04 06:38] LABS: ALBUMIN 2.8 g/dL (3.2-5.0); BILIRUBIN, TOTAL 0.5 mg/dL (0.0-1.4)
--- NOTE | 2021-01-04 07:00 | NUR ---
RECIEVED REPORT FROM RN
[2021-01-04 07:30] VITALS: BP 155/88
--- NOTE | 2021-01-04 07:33 | NUR ---
DAUGHTER BLANE CALLED FOR UPDATE. PASSCODE PROVIDED.
--- NOTE | 2021-01-04 07:52 | NUR ---
PT RESTING IN SEMI FOWLERS POSITION. PT IS A/O X3. ASSESSMENT AND VITALS COMPLETED. RESPIRATIONS ARE EVEN AND UNLABORED ON ROOM AIR. LUNG OSUNDS ARE CLEAR. HEART RHYTHM NORMAL, SR ON CARDIAC MONITORING. BOWEL SOUNDS ARE ACTIVE. #20G LAC FLUSHED, SITE REMAINS HEALTHY AND PATENT. RIJ TRIPLE LUMEN FLUSHED, SITE REMAINS HEALTHY AND PATENT WITH GOOD BLOOD RETURN. PT COMPLAINS OF 9/10 LEFT ARM/SHOULDER PAIN. PT REMAINS NPO AT THIS TIME. ALL SAFETY PRECAUTION S ARE IN PLACE WITH CALL LIGHT IN REACH. WILL CONTINUE TO MONITOR.
[2021-01-04 08:45] VITALS: BP 135/74
--- NOTE | 2021-01-04 09:12 | NUR ---
DR MESSINA AT BEDSIDE
--- NOTE | 2021-01-04 09:20 | NUR ---
ORDER FOR DIET TO BE ADMIT TO [facility] WITH NO TELE. ORDERS FOR REGULAR DIET.
--- NOTE | 2021-01-04 10:12 | NUR ---
REPORT GIVEN TO ROSELIA HAIR
--- NOTE | 2021-01-04 10:25 | NUR ---
RECEIVED REPORT FOR PATIENT TRANSFER
--- NOTE | 2021-01-04 10:30 | NUR ---
PT TRANSPORTED NTO [facility] ROOM 279 VIA STRECTHER IN STABLE CONDITION
--- NOTE | 2021-01-04 10:33 | NUR ---
PT ARRIVDE ON FLOOR VIA STRETCHER, ACCOMPANIED BY TRANFERRING NURSE. PT AWAKE, ALERT AND PT COMPLAINS OF PAIN IN HER RIGHT UPPER ADDOMEN. ABDOMEN TENDER TO TOUCH. PATIENT SUPINE IN BED, VS AND ASSESSEMENT COMPLETE. HR NORMAL, LUNG SOUNDS CLEAR. PATIENT ON RA. IV SITE FLUSHED AND IS PATENT. ABDOMEN TENDER TO TOUCH. PERIPHERAL PULSES PALPABLE. SAFETY PRECAUTIONS ARE IN PLACE. CALL LIGHT WITHIN PATIENTS REACH. WILL MONITOR PATIENT CLOSELY
[2021-01-04 10:48] VITALS: BP 149/96
--- NOTE | 2021-01-04 11:40 | NUR ---
S: NIC QUIROZ is a 55 F who presents with severe sepsis with septic shock, UTI, pneumonia, influenza A, and opiate overdose. She has a history of chronic pancreatitis, neuropathy, asthma/COPD, chronic TMJ, drug abuse, and anxiety/depression. All medications in patient's chart were reviewed. O: VS: BP 146/96 mmHg, P 80 bpm, RR 20 breath/min, T 97.6 F W 85 kg, HT 65 in, Scr= 0.4, CrCl= 164 ml/min A: Blood culture is pending. Urine culture is pending. P: Patient is on Zosyn 3.375g IV Q6H. Vancomycin ordered for pharmacy to dose. Start Vancomycin 1g IV Q8H. Vancomycin trough is drawn before the 4th dose on 01/04/21 @ 2130. Vancomycin goal trough is between 15-20 mcg/ml. Pharmacy will follow and or advise on antibiotics use as needed.
--- NOTE | 2021-01-04 14:00 | NUR ---
PT AMBULATORY IN THE [place]; PT STATES THAT SHE HAS TO GO HOME; ESCORTED PT TO ROOM; PT STATES SHE HAS TO GO HOME NOW; ASKED PT REASON FOR WANTING TO LEAVE; STATES, "I AM LOOSING ALL MY FAMILY." EXPLAINED TO PT THAT SHE IS VERY SICK AND EXPLAIN DX TO PT. AND THAT LEAVING [facility] SHE COULD POSSIBLY ; PT CALLED FAMILY ON THE PHONE DISCUSSED OPTIONS AND DECIDE TO STAY; PT MEDICATED ORDERED FOR ANXIETY AND ITCHING; CALL MILLER WITHIN REACH; WILL CONTINUE TO MONITOR
[2021-01-04] MEDS ORDERED: EFFEXOR XR75 MG/CAP PO (14:42)
[2021-01-04] MEDS ORDERED: XANAX1 MG PO (14:42)
[2021-01-04] MEDS ORDERED: EFFEXOR XR150 MG PO (14:42)
[2021-01-04 15:11] VITALS: BP 125/87
--- NOTE | 2021-01-04 16:03 | NUR ---
PT RESTING WITH EYES CLOSED; AROUSED EASILY UPON ENTERING ROOM; REQUESTING JUICE AND CRACKERS; PROVIDED; CALL MILLER WITHIN REACH; WILL CONTINUE TO MONITOR.
--- NOTE | 2021-01-04 17:50 | NUR ---
PT RESTING IN BED. NO NEEDS AT THIS TIME. SAFETY MEASURES IN PLACE. CALL LIGHT WITHIN REACH. WILL CONTINUE TO MONITOR PATIENT
--- NOTE | 2021-01-04 17:52 | NUR ---
PT SLEEPING. NO NEEDS AT THIS TIME
[2021-01-04 19:00] VITALS: BP 118/65
--- NOTE | 2021-01-04 20:00 | NUR ---
PHYSICAL ASSESMENT COMPLETE. PT CURRENTLY C/O OF PAIN. PO MOTRIN PROVIDED. SCHEDULED MEDICATIONS AND PRN MEDICATION ADMINISTERED, SEE E-MAR. PT DENIES ANY NEEDS AT THIS TIME. PLAN OF CARE REVIEWED, PT DENIES QUESTIONS, VERBALIZES UNDERSTANDING. ITEMS WITHIN REACH, BED LOCKED IN LOW POSITION W/ BEDRAILS UP X2. CALL MILLER WITHIN REACH, AGREES TO CALL PRN.
--- NOTE | 2021-01-05 02:54 | NUR ---
PT LAYING IN BED WITH EYES CLOSED, APPEARS TO BE SLEEPING, APPEARS COMFORTABLE AND IN NO DISTRESS. RESPIRATIONS REGULAR AND UNLABORED. ITEMS REMAIN WITHIN REACH, CALL MILLER REMAINS WITHIN REACH. BED REMAINS LOCKED AND IN LOW POSITION WITH BEDRAILS UP X2. WILL CONTINUE TO MONITOR.
[2021-01-05 04:00] VITALS: BP 121/70
[2021-01-05 05:20] LABS: HEMATOCRIT 32.7 % (37.0-47.0); HEMOGLOBIN 10.3 g/dl (12.0-16.0); MEAN CELL VOLUME 86.5 fL CALC (80.0-100.0); MEAN CORPUSCULAR HGB 27.2 pG CALC (26.0-32.0); MEAN CORPUSCULAR HGB CONC 31.5 g/dL CAL (32.0-36.0); RED BLOOD COUNT 3.78 mill/uL (4.20-5.60); RED CELL DISTRI WIDTH 13.7 % (11.5-15.5)
[2021-01-05 05:31] LABS: ANION GAP 8 (6-22 (CALC)); BUN 6 mg/dL (7-17); BUN/CREATININE RATIO 13 (12-20 (CALC)); CARBON DIOXIDE 29 mmol/l (22-30); CHLORIDE 106 mmol/l (95-108); CREATININE 0.5 mg/dL (0.5-1.0); GFR > 60 ML/MIN (>=60 (CALC)); GFR FOR AFR.AMER. > 60 ML/MIN (>=60 (CALC)); MAGNESIUM 1.9 mg/dL (1.6-2.3); POTASSIUM 3.7 mmol/l (3.5-5.1); SODIUM 139 mmol/l (137-146)
[2021-01-05] MEDS ORDERED: DOXYCYCL HYC100 MG PO (09:31)
== END 2021-01-05 12:41 | disposition home or self-care (01) | DRG 871 ==
LOC: ED 10:43 → ED-I 17:53 → MS2 17:53
PROVIDERS: Emergency Medicine; Nurse Practitioner; ADMIT Internal Medicine; ATTEND Internal Medicine
PROC: 05HM33Z Insertion of Infusion Device into Right Internal Jugular Vein, Percutaneous Approach (ICD-10-PCS; principal; 2021-01-03)
DX: A41.9 Sepsis, unspecified organism (principal); R65.21 Severe sepsis with septic shock; J10.00 Influenza due to other identified influenza virus with unspecified type of pneumonia; N39.0 Urinary tract infection, site not specified; J44.0 Chronic obstructive pulmonary disease with (acute) lower respiratory infection; T40.411A Poisoning by fentanyl or fentanyl analogs, accidental (unintentional), initial encounter; F41.9 Anxiety disorder, unspecified; F32.9 Major depressive disorder, single episode, unspecified; G62.9 Polyneuropathy, unspecified; F17.200 Nicotine dependence, unspecified, uncomplicated; B95.62 Methicillin resistant Staphylococcus aureus infection as the cause of diseases classified elsewhere; Z87.440 Personal history of urinary (tract) infections; Z20.822 Contact with and (suspected) exposure to COVID-19
CPT/HCPCS: J1650; J3370

== ENCOUNTER 2021-01-09 09:01 | Emergency (ER) | payer MEDICAID ==
[~2021-01-09] VITALS: Ht 165.1 cm; Wt 91.0 kg
[~2021-01-09 09:01] MED LIST changes: +DOXYCYCL HYC100 MG PO; +EFFEXOR XR150 MG PO; +EFFEXOR XR75 MG/CAP PO; +XANAX1 MG PO
[2021-01-09 10:03] LABS: URINE BILIRUBIN - DIPSTICK NEGATIVE (NEGATIVE); URINE BLOOD DIPSTICK LARGE (NEGATIVE); URINE COLOR YELLOW; URINE GLUCOSE - DIPSTICK NEGATIVE (NEGATIVE); URINE KETONE NEGATIVE (NEGATIVE); URINE PROTEIN - DIPSTICK NEGATIVE (NEG-TRACE); URINE UROBILINOGEN - DIPSTICK 0.2 E.U./dL (0.2)
[2021-01-09 10:06] LABS: URINE LEUK ESTERASE SMALL (NEGATIVE); URINE NITRITE - DIPSTICK NEGATIVE (Negative)
[2021-01-09 10:07] LABS: URINE BACTERIA FEW hpf; URINE EPITHELIAL CELLS FEW EPI/hpf (0-FEW)
[2021-01-09] MEDS ORDERED: MOTRIN800 MG PO (11:02)
[2021-01-09] MEDS ORDERED: BACTRIM DS1 TAB PO (11:02)
[2021-01-09] MEDS ORDERED: FLEXERIL5 M1 PO (11:02)
[2021-01-09 11:13] VITALS: BP 143/90
== END 2021-01-09 11:45 | disposition home or self-care (01) ==
LOC: ED 09:01
DX: S23.3XXA Sprain of ligaments of thoracic spine, initial encounter (principal); N39.0 Urinary tract infection, site not specified; J44.9 Chronic obstructive pulmonary disease, unspecified; F41.9 Anxiety disorder, unspecified; F15.10 Other stimulant abuse, uncomplicated; X58.XXXA Exposure to other specified factors, initial encounter; Z87.440 Personal history of urinary (tract) infections

== ENCOUNTER 2021-02-24 15:26 | Emergency (ER) | payer MEDICAID ==
[~2021-02-24] VITALS: Ht 165.1 cm; Wt 81.8 kg
[~2021-02-24 15:26] MED LIST changes: +FLEXERIL5 M1 PO; +MOTRIN800 MG PO
[2021-02-24 16:57] LABS: URINE BILIRUBIN - DIPSTICK NEGATIVE (NEGATIVE); URINE BLOOD DIPSTICK LARGE (NEGATIVE); URINE COLOR YELLOW; URINE GLUCOSE - DIPSTICK NEGATIVE (NEGATIVE); URINE KETONE NEGATIVE (NEGATIVE); URINE PROTEIN - DIPSTICK 30 mg/dL (NEG-TRACE); URINE UROBILINOGEN - DIPSTICK 0.2 E.U./dL (0.2)
[2021-02-24 17:00] LABS: HEMATOCRIT 36.2 % (37.0-47.0); HEMOGLOBIN 11.5 g/dl (12.0-16.0); IMMATURE GRANULOCYTES 0.4 % (0.0-5.0); MEAN CORPUSCULAR HGB CONC 31.8 g/dL CAL (32.0-36.0); NEUT# 7.46 thou/uL (2.00-7.15); RED BLOOD COUNT 4.26 mill/uL (4.20-5.60); RED CELL DISTRI WIDTH 14.9 % (11.5-15.5)
[2021-02-24 17:01] LABS: URINE LEUK ESTERASE SMALL (NEGATIVE); URINE NITRITE - DIPSTICK POSITIVE (Negative)
[2021-02-24 17:07] LABS: URINE BACTERIA MANY hpf; URINE RBC 25-50 RBC/hpf (0-5); URINE SQUAMOUS EPITHELIAL CELL MODERATE EPI/hpf (0-FEW)
[2021-02-24 17:42] LABS: ALBUMIN 3.5 g/dL (3.2-5.0); ALKALINE PHOSPHATASE 132 u/l (38-126); ANION GAP 11 (6-22 (CALC)); BILIRUBIN, TOTAL 0.3 mg/dL (0.0-1.4); BUN 15 mg/dL (7-17); BUN/CREATININE RATIO 22 (12-20 (CALC)); CARBON DIOXIDE 23 mmol/l (22-30); CHLORIDE 105 mmol/l (95-108); CREATININE 0.7 mg/dL (0.5-1.0); GFR > 60 ML/MIN (>=60 (CALC)); GFR FOR AFR.AMER. > 60 ML/MIN (>=60 (CALC)); LIPASE 42 u/l (23-300); MAGNESIUM 1.7 mg/dL (1.6-2.3); POTASSIUM 3.2 mmol/l (3.5-5.1); SGOT/AST 116 u/l (14-36); SODIUM 136 mmol/l (137-146); TOTAL PROTEIN 7.5 g/dL (6.3-8.2)
[2021-02-24] MEDS ORDERED: TORADOL PO (19:47)
[2021-02-24] MEDS ORDERED: MACROBID100 M1 PO (19:47)
[2021-02-24 20:17] VITALS: BP 115/70
== END 2021-02-24 19:52 | disposition left against medical advice (07) ==
LOC: ED 15:26
PROVIDERS: Emergency Medicine
DX: N39.0 Urinary tract infection, site not specified (principal); M25.512 Pain in left shoulder; J44.9 Chronic obstructive pulmonary disease, unspecified; F41.9 Anxiety disorder, unspecified; Z87.440 Personal history of urinary (tract) infections; Z20.822 Contact with and (suspected) exposure to COVID-19
CPT/HCPCS: J2060

== ENCOUNTER 2021-03-11 12:23 | Emergency (ER) | payer MEDICAID ==
[~2021-03-11] VITALS: Ht 165.1 cm; Wt 70.0 kg
[~2021-03-11 12:23] MED LIST changes: +MACROBID100 M1 PO
[2021-03-11] MEDS ORDERED: XANAX1 MG PO (12:33)
[2021-03-11] MEDS ORDERED: EFFEXOR XR150 MG PO (12:33)
[2021-03-11 13:07] LABS: HEMATOCRIT 35.5 % (37.0-47.0); HEMOGLOBIN 11.2 g/dl (12.0-16.0); IMMATURE GRANULOCYTES 0.3 % (0.0-5.0); MEAN CELL VOLUME 82.9 fL CALC (80.0-100.0); MEAN CORPUSCULAR HGB 26.2 pG CALC (26.0-32.0); MEAN CORPUSCULAR HGB CONC 31.5 g/dL CAL (32.0-36.0); NEUT# 14.92 thou/uL (2.00-7.15); RED BLOOD COUNT 4.28 mill/uL (4.20-5.60); RED CELL DISTRI WIDTH 14.8 % (11.5-15.5)
[2021-03-11 13:14] LABS: URINE BILIRUBIN - DIPSTICK NEGATIVE (NEGATIVE); URINE BLOOD DIPSTICK LARGE (NEGATIVE); URINE COLOR YELLOW; URINE GLUCOSE - DIPSTICK NEGATIVE (NEGATIVE); URINE KETONE NEGATIVE (NEGATIVE); URINE LEUK ESTERASE MODERATE (NEGATIVE); URINE NITRITE - DIPSTICK NEGATIVE (Negative); URINE PROTEIN - DIPSTICK 30 mg/dL (NEG-TRACE); URINE SPECIFIC GRAVITY 1.025; URINE UROBILINOGEN - DIPSTICK 0.2 E.U./dL (0.2)
[2021-03-11 13:15] LABS: URINE BACTERIA MODERATE hpf; URINE EPITHELIAL CELLS MANY EPI/hpf (0-FEW); URINE RBC 25-50 RBC/hpf (0-5); URINE WBC 20-50 WBC/hpf (0-5)
[2021-03-11 13:33] LABS: ALKALINE PHOSPHATASE 93 u/l (38-126); ANION GAP 13 (6-22 (CALC)); BILIRUBIN, TOTAL 0.4 mg/dL (0.0-1.4); BUN 14 mg/dL (7-17); BUN/CREATININE RATIO 28 (12-20 (CALC)); CARBON DIOXIDE 27 mmol/l (22-30); CHLORIDE 101 mmol/l (95-108); CREATININE 0.5 mg/dL (0.5-1.0); ETHYL ALCOHOL 0 mg/dl (0-30); GFR > 60 ML/MIN (>=60 (CALC)); GFR FOR AFR.AMER. > 60 ML/MIN (>=60 (CALC)); POTASSIUM 3.8 mmol/l (3.5-5.1); SGOT/AST 20 u/l (14-36); SODIUM 137 mmol/l (137-146); TOTAL PROTEIN 9.3 g/dL (6.3-8.2)
[2021-03-11] MEDS ORDERED: TRAMADOL HCL50 MG PO (14:30)
[2021-03-11] MEDS ORDERED: BACTRIM DS1 TAB PO (14:31)
[2021-03-11 15:03] VITALS: BP 173/101
== END 2021-03-11 16:27 | disposition home or self-care (01) ==
LOC: ED 12:23
PROVIDERS: Family Medicine
DX: S16.1XXA Strain of muscle, fascia and tendon at neck level, initial encounter (principal); N39.0 Urinary tract infection, site not specified; B96.89 Other specified bacterial agents as the cause of diseases classified elsewhere; J44.9 Chronic obstructive pulmonary disease, unspecified; F41.9 Anxiety disorder, unspecified; F17.200 Nicotine dependence, unspecified, uncomplicated; X58.XXXA Exposure to other specified factors, initial encounter; Z87.440 Personal history of urinary (tract) infections

== ENCOUNTER 2021-11-28 17:20 | Inpatient (IN) | payer OTHER ==
[2021-11-28] VITALS (23 sets, daily range): BP systolic 61–139; BP diastolic 35–92
[~2021-11-28] VITALS: Ht 165.1 cm; Wt 100.0 kg
[2021-11-28 17:58] LABS: HEMATOCRIT 37.1 % (37.0-47.0); HEMOGLOBIN 11.6 g/dl (12.0-16.0); IMMATURE GRANULOCYTES 0.8 % (0.0-5.0); MEAN CELL VOLUME 80.5 fL CALC (80.0-100.0); MEAN CORPUSCULAR HGB 25.2 pG CALC (26.0-32.0); MEAN CORPUSCULAR HGB CONC 31.3 g/dL CAL (32.0-36.0); NEUT# 6.22 thou/uL (2.00-7.15); RED BLOOD COUNT 4.61 mill/uL (4.20-5.60); RED CELL DISTRI WIDTH 15.3 % (11.5-15.5)
[2021-11-28 18:16] LABS: ALBUMIN 3.9 g/dL (3.2-5.0); ALKALINE PHOSPHATASE 90 u/l (38-126); ANION GAP 15 (6-22 (CALC)); BILIRUBIN, TOTAL 0.3 mg/dL (0.0-1.4); BUN 25 mg/dL (7-17); BUN/CREATININE RATIO 24 (12-20 (CALC)); CARBON DIOXIDE 24 mmol/l (22-30); CHLORIDE 100 mmol/l (95-108); CREATININE 1.1 mg/dL (0.5-1.0); GFR FOR AFR.AMER. > 60 ML/MIN (>=60 (CALC)); GFR OTHER RACES 51 ML/MIN (>=60 (CALC)); POTASSIUM 3.9 mmol/l (3.5-5.1); SGOT/AST 27 u/l (14-36); SODIUM 135 mmol/l (137-146); TOTAL PROTEIN 8.9 g/dL (6.3-8.2)
[2021-11-29] VITALS (63 sets, daily range): BP systolic 75–162; BP diastolic 47–125
[2021-11-29 01:18] LABS: URINE BILIRUBIN - DIPSTICK NEGATIVE (NEGATIVE); URINE BLOOD DIPSTICK LARGE (NEGATIVE); URINE COLOR YELLOW; URINE GLUCOSE - DIPSTICK NEGATIVE (NEGATIVE); URINE KETONE NEGATIVE (NEGATIVE); URINE PH 5.5 (4.5-8.0); URINE SPECIFIC GRAVITY 1.015; URINE UROBILINOGEN - DIPSTICK 0.2 E.U./dL (0.2)
[2021-11-29 01:28] LABS: URINE LEUK ESTERASE SMALL (NEGATIVE); URINE NITRITE - DIPSTICK POSITIVE (Negative); URINE PROTEIN - DIPSTICK NEGATIVE (NEG-TRACE)
[2021-11-29 01:30] LABS: URINE EPITHELIAL CELLS MODERATE EPI/hpf (0-FEW); URINE RBC >100 RBC/hpf (0-5); URINE WBC >100 WBC/hpf (0-5)
[2021-11-29 01:31] LABS: URINE BACTERIA MANY hpf
[2021-11-29 06:13] LABS: HEMATOCRIT 38.2 % (37.0-47.0); HEMOGLOBIN 11.7 g/dl (12.0-16.0); IMMATURE GRANULOCYTES 0.5 % (0.0-5.0); MEAN CELL VOLUME 83.2 fL CALC (80.0-100.0); MEAN CORPUSCULAR HGB 25.5 pG CALC (26.0-32.0); MEAN CORPUSCULAR HGB CONC 30.6 g/dL CAL (32.0-36.0); NEUT# 6.27 thou/uL (2.00-7.15); RED BLOOD COUNT 4.59 mill/uL (4.20-5.60); RED CELL DISTRI WIDTH 15.4 % (11.5-15.5)
[2021-11-29 06:47] LABS: ALBUMIN 3.3 g/dL (3.2-5.0); ALKALINE PHOSPHATASE 79 u/l (38-126); ANION GAP 15 (6-22 (CALC)); BILIRUBIN, TOTAL 0.4 mg/dL (0.0-1.4); BUN 14 mg/dL (7-17); BUN/CREATININE RATIO 27 (12-20 (CALC)); CARBON DIOXIDE 20 mmol/l (22-30); CHLORIDE 107 mmol/l (95-108); CREATININE 0.5 mg/dL (0.5-1.0); GFR FOR AFR.AMER. > 60 ML/MIN (>=60 (CALC)); GFR OTHER RACES > 60 ML/MIN (>=60 (CALC)); MAGNESIUM 1.8 mg/dL (1.6-2.3); POTASSIUM 4.6 mmol/l (3.5-5.1); SGOT/AST 33 u/l (14-36); SODIUM 137 mmol/l (137-146); TOTAL PROTEIN 7.5 g/dL (6.3-8.2)
[2021-11-29] MEDS ORDERED: VENLAFAXINE75 M1 PO (11:30)
[2021-11-29] MEDS ORDERED: MIRTAZAPINE15 MG PO (11:31)
[2021-11-29] MEDS ORDERED: MOTRIN IB200 MG PO (11:31)
[2021-11-30 00:39] VITALS: BP 112/74
[2021-11-30 04:29] VITALS: BP 108/75
[2021-11-30 04:57] LABS: MEAN CELL VOLUME 81.5 fL CALC (80.0-100.0); MEAN CORPUSCULAR HGB 25.3 pG CALC (26.0-32.0); MEAN CORPUSCULAR HGB CONC 31.1 g/dL CAL (32.0-36.0); RED BLOOD COUNT 3.63 mill/uL (4.20-5.60)
[2021-11-30 05:02] LABS: HEMATOCRIT 29.6 % (37.0-47.0); HEMOGLOBIN 9.2 g/dl (12.0-16.0)
[2021-11-30 05:29] LABS: ALBUMIN 2.8 g/dL (3.2-5.0); ALKALINE PHOSPHATASE 63 u/l (38-126); ANION GAP 9 (6-22 (CALC)); BUN 8 mg/dL (7-17); BUN/CREATININE RATIO 16 (12-20 (CALC)); CARBON DIOXIDE 24 mmol/l (22-30); CHLORIDE 108 mmol/l (95-108); CREATININE 0.5 mg/dL (0.5-1.0); GFR FOR AFR.AMER. > 60 ML/MIN (>=60 (CALC)); GFR OTHER RACES > 60 ML/MIN (>=60 (CALC)); MAGNESIUM 1.8 mg/dL (1.6-2.3); POTASSIUM 3.7 mmol/l (3.5-5.1); SGOT/AST 24 u/l (14-36); SODIUM 137 mmol/l (137-146); TOTAL PROTEIN 6.4 g/dL (6.3-8.2)
[2021-11-30 05:30] LABS: BILIRUBIN, TOTAL 0.1 mg/dL (0.0-1.4)
[2021-11-30 06:17] VITALS: BP 90/52
[2021-11-30 10:58] VITALS: BP 102/65
[2021-11-30 15:00] VITALS: BP 108/66
[2021-11-30 19:00] VITALS: BP 112/74
[2021-12-01 00:12] VITALS: BP 116/80
[2021-12-01 04:42] VITALS: BP 97/60
[2021-12-01 05:45] LABS: HEMATOCRIT 31.5 % (37.0-47.0); HEMOGLOBIN 9.9 g/dl (12.0-16.0); MEAN CORPUSCULAR HGB 25.4 pG CALC (26.0-32.0); MEAN CORPUSCULAR HGB CONC 31.4 g/dL CAL (32.0-36.0); RED BLOOD COUNT 3.89 mill/uL (4.20-5.60)
[2021-12-01 06:07] VITALS: BP 125/76
[2021-12-01 06:09] LABS: ALBUMIN 2.7 g/dL (3.2-5.0); ALKALINE PHOSPHATASE 68 u/l (38-126); ANION GAP 9 (6-22 (CALC)); BUN 5 mg/dL (7-17); BUN/CREATININE RATIO 12 (12-20 (CALC)); CARBON DIOXIDE 26 mmol/l (22-30); CHLORIDE 108 mmol/l (95-108); CREATININE 0.4 mg/dL (0.5-1.0); GFR FOR AFR.AMER. > 60 ML/MIN (>=60 (CALC)); GFR OTHER RACES > 60 ML/MIN (>=60 (CALC)); SGOT/AST 18 u/l (14-36); SODIUM 139 mmol/l (137-146); TOTAL PROTEIN 6.3 g/dL (6.3-8.2)
[2021-12-01 06:15] LABS: BILIRUBIN, TOTAL 0.2 mg/dL (0.0-1.4)
[2021-12-01] MEDS ORDERED: LEVAQUIN750 M1 PO (11:10)
[2021-12-01] MEDS ORDERED: METRONIDAZOLE500 MG PO (11:11)
[2021-12-01] MEDS ORDERED: LORTAB5 PO (11:12)
[2021-12-01 11:32] VITALS: BP 109/59
== END 2021-12-01 13:07 | disposition home or self-care (01) | DRG 385 ==
LOC: ED 17:20 → ED-I 19:35 → ED 19:58 → ICU 19:59 → MS2 11-29 18:30
PROVIDERS: Emergency Medicine; ADMIT Internal Medicine; ATTEND Internal Medicine
PROC: 3E033XZ Introduction of Vasopressor into Peripheral Vein, Percutaneous Approach (ICD-10-PCS; principal; 2021-11-28)
DX: K50.10 Crohn's disease of large intestine without complications (principal); J18.9 Pneumonia, unspecified organism; J44.1 Chronic obstructive pulmonary disease with (acute) exacerbation; J44.0 Chronic obstructive pulmonary disease with (acute) lower respiratory infection; K86.1 Other chronic pancreatitis; S30.1XXA Contusion of abdominal wall, initial encounter; I95.9 Hypotension, unspecified; G62.9 Polyneuropathy, unspecified; F19.10 Other psychoactive substance abuse, uncomplicated; F32.A Depression, unspecified; F41.9 Anxiety disorder, unspecified; F17.210 Nicotine dependence, cigarettes, uncomplicated; W19.XXXA Unspecified fall, initial encounter; Y92.007 Garden or yard of unspecified non-institutional (private) residence as the place of occurrence of the external cause; Z87.440 Personal history of urinary (tract) infections; Z86.14 Personal history of Methicillin resistant Staphylococcus aureus infection; Z20.822 Contact with and (suspected) exposure to COVID-19
CPT/HCPCS: J3370; Q9967

== ENCOUNTER 2021-12-24 16:11 | Emergency (ER) | payer OTHER ==
[~2021-12-24 16:11] MED LIST changes: +LEVAQUIN750 M1 PO; +LORTAB5 PO; +METRONIDAZOLE500 MG PO; +MIRTAZAPINE15 MG PO; +MOTRIN IB200 MG PO; +VENLAFAXINE75 M1 PO
== END 2021-12-24 17:48 | disposition left against medical advice (07) | DRG 951 ==
LOC: ED 16:11 → LWOBS 17:48
DX: Z53.21 Procedure and treatment not carried out due to patient leaving prior to being seen by health care provider (principal)

== ENCOUNTER 2022-01-07 21:26 | Emergency (ER) | payer OTHER ==
[~2022-01-07] VITALS: Ht 165.1 cm; Wt 77.0 kg
[2022-01-07 21:44] VITALS: BP 85/59
[2022-01-08] MEDS ORDERED: BACTRIM DS1 TAB PO (04:06)
== END 2022-01-07 22:00 | disposition left against medical advice (07) ==
LOC: ED 21:26
DX: Z53.21 Procedure and treatment not carried out due to patient leaving prior to being seen by health care provider (principal)

== ENCOUNTER 2022-01-07 22:12 | Emergency (ER) | payer OTHER ==
[~2022-01-07] VITALS: Ht 165.1 cm; Wt 77.0 kg
[2022-01-08] VITALS (16 sets, daily range): BP systolic 75–108; BP diastolic 41–79
[2022-01-08 01:28] LABS: HEMATOCRIT 36.9 % (37.0-47.0); HEMOGLOBIN 11.5 g/dl (12.0-16.0); IMMATURE GRANULOCYTES 0.3 % (0.0-5.0); MEAN CELL VOLUME 80.6 fL CALC (80.0-100.0); MEAN CORPUSCULAR HGB 25.1 pG CALC (26.0-32.0); MEAN CORPUSCULAR HGB CONC 31.2 g/dL CAL (32.0-36.0); NEUT# 9.63 thou/uL (2.00-7.15); RED BLOOD COUNT 4.58 mill/uL (4.20-5.60); RED CELL DISTRI WIDTH 16.9 % (11.5-15.5)
[2022-01-08 01:33] LABS: ALKALINE PHOSPHATASE 76 u/l (38-126); ANION GAP 13 (6-22 (CALC)); BILIRUBIN, TOTAL 0.2 mg/dL (0.0-1.4); BUN 17 mg/dL (7-17); BUN/CREATININE RATIO 18 (12-20 (CALC)); CARBON DIOXIDE 27 mmol/l (22-30); CHLORIDE 98 mmol/l (95-108); CREATININE 0.9 mg/dL (0.5-1.0); ETHYL ALCOHOL 0 mg/dl (0-30); GFR FOR AFR.AMER. > 60 ML/MIN (>=60 (CALC)); GFR OTHER RACES > 60 ML/MIN (>=60 (CALC)); POTASSIUM 3.6 mmol/l (3.5-5.1); SGOT/AST 24 u/l (14-36); SODIUM 134 mmol/l (137-146)
[2022-01-08 01:44] LABS: TOTAL PROTEIN 8.4 g/dL (6.3-8.2)
[2022-01-08 03:16] LABS: URINE BILIRUBIN - DIPSTICK NEGATIVE (NEGATIVE); URINE BLOOD DIPSTICK MODERATE (NEGATIVE); URINE COLOR YELLOW; URINE GLUCOSE - DIPSTICK NEGATIVE (NEGATIVE); URINE KETONE NEGATIVE (NEGATIVE); URINE PH 5.5 (4.5-8.0); URINE PROTEIN - DIPSTICK NEGATIVE (NEG-TRACE); URINE UROBILINOGEN - DIPSTICK 0.2 E.U./dL (0.2)
[2022-01-08 03:20] LABS: URINE LEUK ESTERASE MODERATE (NEGATIVE); URINE NITRITE - DIPSTICK POSITIVE (Negative)
[2022-01-08 03:27] LABS: URINE BACTERIA MANY hpf; URINE SQUAMOUS EPITHELIAL CELL FEW EPI/hpf (0-FEW); URINE WBC 50-100 WBC/hpf (0-5)
[2022-01-08] MEDS ORDERED: BACTRIM DS1 TAB PO (04:06)
== END 2022-01-08 04:30 | disposition home or self-care (01) ==
LOC: ED 22:12
PROVIDERS: Family Medicine
DX: N39.0 Urinary tract infection, site not specified (principal); F19.10 Other psychoactive substance abuse, uncomplicated; J44.9 Chronic obstructive pulmonary disease, unspecified; F41.9 Anxiety disorder, unspecified; F17.200 Nicotine dependence, unspecified, uncomplicated; B96.89 Other specified bacterial agents as the cause of diseases classified elsewhere; Z87.440 Personal history of urinary (tract) infections; Z86.14 Personal history of Methicillin resistant Staphylococcus aureus infection; Z98.890 Other specified postprocedural states; Z20.822 Contact with and (suspected) exposure to COVID-19
CPT/HCPCS: Q9967